=== PATIENT | male | born 1950 | race Caucasian/White ===

== ENCOUNTER 2024-10-23 13:54 | Outpatient (AMB) | payer MEDICARE, BC, SELFPAY ==
--- NOTE | 2024-10-23 13:59 | A.OFFVIS_ITS ---
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 He is a 74-year-old male with prior history of hypertension and hyperlipidemia as borderline diabetes currently on medications. Patient on EKG in June was noted to have frequent PVCs on the 12 lead and was referred here for further evaluation. He was no cardiac symptoms whatsoever. Denies any symptoms skipped heartbeats, palpitation, lightheadedness, syncope. He plays tennis 3 times a week doubles and has no exertional symptoms of chest pain or shortness of breath. 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 He has not had actually a fainting episode. He denies any orthopnea, PND, leg edema. Comes for further evaluation. Said monitors blood pressure at home in the blood pressure is very labile. Review of Systems Const Denies chills, Denies daytime sleepiness, Denies fatigue, Denies fever(s), Denies frequent falls, Denies poor appetite, Denies snoring, Denies stops breathing during sleep, Denies weakness, Denies weight gain and Denies weight loss Eyes Denies loss of vision ENT Denies dizziness and Denies hearing loss Card Denies chest pain, Denies claudication, Denies leg edema, Denies lightheadedness, Denies palpitations, Denies dyspnea, Denies dyspnea on exertion and Denies orthopnea Resp Denies cough, Denies excessive phlegm production, Denies dyspnea, Denies dyspnea on exertion, Denies snoring and Denies wheezing GI Denies abdominal pain, Denies hematochezia, Denies change in bowel habits, Denies nausea and Denies vomiting Denies dysuria and Denies urinary frequency Musc Denies arthralgias, Denies muscle weakness, Denies numbness and Denies other (frequent falls) Skin/Breast Denies nail changes and Denies rash Neuro Denies Abnormal speech present, Denies dizziness, Denies frequent falls, Denies loss of vision, Denies memory loss, Denies numbness and Denies weakness Psych Denies depression and Denies memory loss Endo Denies fatigue and Denies palpitations Michael/Lymph Reports easy bruising and Reports other (anemia) Aller/Immun Denies wheezing Physical Exam Vital Signs: Last Vital Signs Pulse 60 10/23/24 14:00 BP 130/82 10/23/24 14:00 BMI result Body Mass Index 27.5 Const General: cooperative, comfortable, no acute distress, well developed, alert, awake, Physically active and well groomed Nutritional Appearance: average body habitus Orientation/consciousness: patient oriented x3 Limitations: no limitations HEENT Head: Yes normocephalic and Yes atraumatic Neck Neck: Yes trachea midline, Yes supple and Yes no JVD Resp Effort & Inspection: normal respiratory effort Auscultation: clear to auscultation bilaterally Cardio Jugular venous distension: no JVD Palpation: normal PMI Rate: regular rate Rhythm: regular rhythm Heart sounds: S1 normal heart sound present, S2 normal heart sound present, no click, no gallops, no murmurs and no rubs GI Auscultation: normal bowel sounds Skin General skin exam: no rashes or lesions noted Neuro General: patient oriented x3 and no focal motor deficits Speech: No Abnormal speech present Extrem General: Yes no clubbing, cyanosis or edema Office Procedures EKG Details: EKG shows normal sinus rhythm with normal EKG 46625-[id number], Complete Assessment & Plan Assessment & Plan (1) PVC (premature ventricular contraction): Code(s): I49.3 - Ventricular premature depolarization Category: Medical Plan: Patient noted to have PVCs which are not very symptomatic for him. Unknown f requency of PVCs as he was no symptoms. At this point time would suggest a 7 day Holter monitor to assess for frequency and type of PVCs. If he was significantly increased burden of PVCs may require further intervention including with the ablation. Will also obtain echocardiogram to assess for cardiac structure and function to evaluate for hypertensive heart disease. Avoidance of stimulants was discussed. Can not maximize metoprolol therapy given his slow heart rate at rest. (2) Labile hypertension: Code(s): R09.89 - Other specified symptoms and signs involving the circulatory and respiratory systems Category: Medical Plan: Patient with labile hypertension with noted multiple times at home to have elevated blood pressure. However he also has symptoms of orthostatic lightheadedness while doing exertional activity. Suggested increase water intake. He said he has not been doing that. Watch in his salt intake. Will refer him for 24 hour ambulatory blood pressure monitor. Otherwise blood pressure today is well optimized continue current therapy. Can consider also renal duplex. Will follow up in the clinic in 2 months time, sooner p.r.n.. Thank you for allowing me to partake in his care Orders: Orders CA echo transthoracic complete Today I49.3 - Ventricular premature depolarization ECG 7 day holter monitor Today I49.3 - Ventricular premature depolarization Coding Level of Care Code New Pt Level 4 (34255) Complex EM visit Add On G2211 Diagnoses PVC (premature ventricular contraction) I49.3 Labile hypertension R09.89 CPT Codes EKG - CPT: 07143-[id number], Complete ([id number])
[2024-10-23 14:00] VITALS: BP 130/82; PULSE 60; BMI 27.5
--- OUTSIDE RECORDS SUMMARY | 2024-10-23 15:42 | XMS_ITS | Clinical Summary ---
Author Organization [address] Address [address] [place] [phone] Phone Care Team Providers Care Or Assistant Name Role Phone Jero Quintero MD Primary Care Provider Allergies No known active allergies Medications sodium chloride (AYR) 0.65 % nasal drops 1 [place] by Nasal route 3 times daily as needed for Congestion. 4 Active aspirin 81 mg EC tablet Take 1 tablet (81 mg total) by mouth 1 (one) time each day. Active amLODIPine (NORVASC) 5 mg tablet Take 1 tablet (5 mg total) by mouth 1 (one) time each day. 90 tablet 1 5 Active atorvastatin (LIPITOR) 40 mg tablet Take 1 tablet (40 mg total) by mouth 1 (one) time each day. 90 tablet 1 5 Active lisinopriL (PRINIVIL,ZESTR IL) 10 mg tablet Take 1 tablet (10 mg total) by mouth at bedtime. 90 tablet 1 5 Active metFORMIN XR (GLUCOPHAGE-XR) 500 mg 24 hr tablet Take 1 tablet (500 mg total) by mouth 1 (one) time each day. With breakfast 90 tablet 1 5 Active metoprolol succinate (TOPROL-XL) 25 mg 24 hr tablet Take 0.5 tablets (12.5 mg total) by mouth 1 (one) time each day. Do not crush or chew. 45 each 1 5 Active lisinopriL (PRINIVIL,ZESTR IL) 10 mg tablet Take 1 tablet (10 mg total) by mouth 1 (one) time each day. 90 tablet 1 4 10/12/19 25 Discontinu ed(Reorder ) amLODIPine (NORVASC) 5 mg tablet Take 1 tablet (5 mg total) by mouth 1 (one) time each day. 90 tablet 1 4 10/12/19 25 Discontinu ed(Reorder ) metoprolol succinate (TOPROL-XL) 25 mg 24 hr tablet Take 0.5 tablets (12.5 mg total) by mouth 1 (one) time each day. Do not crush or chew. 45 each 1 4 10/12/19 25 Discontinu ed(Reorder ) atorvastatin (LIPITOR) 40 mg tablet Take 1 tablet (40 mg total) by mouth 1 (one) time each day. 90 tablet 1 4 10/12/19 25 Discontinu ed(Reorder ) metFORMIN XR (GLUCOPHAGE-XR) 500 mg 24 hr tablet Take 1 tablet (500 mg total) by mouth 1 (one) time each day. 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 Crow and Dr. 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 Acne 09/24/2008 Essential hypertension, benign 12/17/2005 Encounters Date Type Department Care Team Description 10/11/2024 1:30 PM EDT Office Visit Adult Medicine [address] [phone] Jero Quintero MD Essential hypertension, benign (Primary Dx); Type 2 diabetes mellitus without complication, without long-term current use of insulin (CMS/HCC); Mixed hyperlipidemia; Prostate cancer (CMS/[facility]) from Last 3 Months Immunizations Name Administration Dates Next Due Influenza Quadravalent, 0.5m l (Fluad) 65yo and older 05/09/2020 Influenza Quadravalent, 0.5m l (Fluzone High-dose) 65yo and older 05/07/2023,06/25/2022 Influenza trivalent, 0.5mL ( Fluzone High-dose) 65yo and older 04/22/2021,05/26/2019,04/25/2018 Influenza trivalent, with pr eservative (Fluzone; Afluria) 6mo and older 05/09/2013 Pfizer Covid-19 Bivalent, Or iginal + Ba.1 (Non-US Trademark [employer] Bivalent) 07/15/2022 Pneumococcal conjugate 13 va lent (Prevnar 13, PCV13) 2mo and older 09/16/2015 Pneumococcal conjugate 20 va lent (Prevnar 20, PCV 20) 2mo and older 10/11/2024 Pneumococcal polysaccharide 23 valent (Pneumovax 23) 2yo and older 07/17/2014 Td Tetanus diptheria (Tdvax) 7yo and older 04/25 Tdap Tetanus diptheria acell ular pertussis (Boostrix; Adacel) 7yo and older 08/02/2007 Zoster Live 04/19/2012 Zoster recombinant (Shingrix ) 19yo and older 09/07/2021,09/02/2021,06/23/2021 Surgical History Surgery Date Site/Laterality Comments SHOULDER SURGERY Left PROCEDURE: HISTORICAL SHOULDER SURGERY; COMMENT: 70s injury during softball game BACK SURGERY PROCEDURE: HISTORICAL BACK SURGERY; COMMENT: disc removed PROSTATECTOMY 04/08/2017 PROCEDURE: PROSTATECTOMY ESOPHAGOGASTRODUODENOSCOPY 12/09/2017 PROCEDURE: [place] ESOPHAGOGASTRODUODENOSCOPY TRANSORAL DIAGNOSTIC; COMMENT: small polyp in cardia, snared without cautery: fundic gland polyp COLONOSCOPY 11/22/08 PROCEDURE: HISTORICAL COLONOSCOPY; COMMENT: diverticulosis and hemorrhoids; repeat in ten years COLONOSCOPY W/ POLYPECTOMY 12/09/2017 PROCEDURE: [place] COLSC FLX W/RMVL OF TUMOR POLYP LESION SNARE TQ; COMMENT: sessile serrated adenoma, hemorrhoids and tics; repeat in 5 yrs Medical History Medical History Date Comments Essential hypertension, benign 12/17/2005 D X:Essential hypertension, benign Acne 09/24/2008 DX:Acne 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 DX:Jeannie-We iss tear Prostate cancer ([facility]) 01/2017 DX:Pro state cancer ([facility]); COMMENT: s/p RP, deferred RT, currently on ADT followed closely by urologist every 3 months Multiple cerebral infarction s ([facility]) 04/2017 DX:Multiple cerebral infarct ions ([facility]) Type 2 diabetes mellitus wit hout complication, without long-term current use of insulin 02/08/2024 DX:Type 2 diabetes mellitus without complication, without long-term current use of insulin ([facility]) Family History Medical History Relation Name Comments No Known Problems Aunt No Known Problems Daughter Heart attack Father No Known Problems Maternal Grandfather No Known Problems Maternal Grandmother Kidney cancer Mother No Known Problems Other No Known Problems Paternal Grandfather No Known Problems Paternal Grandmother No Known Problems Sister No Known Problems Uncle Blindness Neg Hx Cataracts Neg Hx Glaucoma Neg Hx Macular degeneration Neg Hx Strabismus Neg Hx Relation Name Status Comments Aunt Daughter Alive Father at age 52. ? [place] Maternal Grandfather Maternal Grandmother Mother renal cancer Other Paternal Grandfather Paternal Grandmother Sister Alive Uncle Social History Tobacco Use Types Packs/Day Years Used Date Smoking Tobacco: Never Smokeless Tobacco: Never Alcohol Use Standard Drinks/Week Comments No 0 (1 standard drink = 0.6 oz pur e alcohol) Housing Instability Answer Date Recorde d Are you worried that in the next 2 months you may not have stable housing? No 07/16/2024 Food Access & Nutrition Answer Date Rec orded Do you have access to a vari ety of food including fruits and vegetables? Yes 07/16/2024 Access to Healthcare Answer Date Record ed Within the last 3 months, ho w many times did you visit the emergency department for your medical care? 0 07/16/2024 Health Literacy Answer Date Recorded How often do you need to hav e someone help you when you read instructions, pamphlets, or other written material from your doctor or pharmacy? Never 07/16/2024 Caregiver: How often do you need to have someone help you when you read instructions, pamphlets, or other written material from your doctor or pharmacy? Not on file 07/16/2024 Financial Risk Answer Date Recorded How hard is it for you to pa y for the very basics like food, housing, medical care, and air conditioning / heating? Not very hard 07/16/2024 Transportation Answer Date Recorded Has the lack of transportati on kept you from meetings, work, or from getting things needed for daily living? No Has the lack of transportati on kept you from medical appointments or from getting medications? No 07/16/2024 Social Isolation Answer Date Recorded How often do you feel lonely or isolated from th ose around you? Never 07/16/2024 Food Risk Answer Date Recorded Within the past 12 months we worried whether our food would run out before we got money to buy more. Never true 07/16/2024 Within the past 12 months th e food we bought just didn't last and we didn't have money to get more. Never true 07/16/2024 Dependent Care Answer Date Recorded Do you need help finding or paying for care for your loved ones. For example, early childhood education coordinator or elderly care for an older adult? No 07/16/2024 Education Answer Date Recorded Do you think completing more education or training, like finishing a GED, going to college, or learning a trade, would be helpful for you? No 07/16/2024 Employment and Income Answer Date Recor ded During the last four weeks, have you been actively looking for work? No 07/16/2024 Living Situation Answer Date Recorded What is your living situation? 1 09/16/2023 Sex and Gender Information Value Date Recorded Sex Assigned at Not on file Legal Sex Male 11:17 PM EST Gender Identity Not on file Sexual Orientation Not on file Obstetrics History Last Filed Vital Signs Vital Sign Reading Time Taken Comments Blood Pressure 122/80 10/11/2024 1:49 PM EDT Pulse 60 10/11/2024 1:15 PM EDT Temperature 36.4 ??C (97.5 ??F) 10/11/2024 1:15 PM ED T Respiratory Rate 14 10/11/2024 1:15 PM EDT Oxygen Saturation 99% 10/11/2024 1:15 PM EDT Inhaled Oxygen Concentration - - Weight 92.5 kg (204 lb) 10/11/2024 1:15 PM EDT Height 182.9 cm (6') 10/11/2024 1:15 PM EDT Body Mass Index 27.67 10/11/2024 1:15 PM EDT Plan of Treatment Health Maintenance Due Date Last Done Comments Diabetes: Annual Retina Eye Exam 1960 Colorectal Cancer Screening: Colonoscopy 07/04/2022 Medicare Annual Wellness Visit 07/04/2022 RSV Immunization Patients 60+ Years Old (1 - 1-dose 75+ series) 02/26/2024 Influenza Vaccine (#1) 2024 , 06/25/2022, 04/22/2021, Additional history exists Diabetes: Blood Sugar Control Test (HGBA1C) 01/09/2025 07/11/2024, 11/12/2023 Diabetes: Annual Urine Albumin-Creatinine Ratio (uACR) 07/11/2025 07/11/2024 Diabetes: Annual GFR (Glomerular Filtration Rate) 07/11/2025 07/11/2024, 06/01/2024, 11/12/2023 Hypertension/CHF/CAD Annual BMP Blood Test 07/11/2025 07/11/2024, 06/01/2024, 11/12/2023 Social Influencers of Health Screening 07/16/2025 07/16/2024 Diabetes: Annual Foot Exam 07/17/2025 07/17/2024 Depression Screening 10/07/2025 10/07/2024, 02/25/20 24 Falls Risk Assessment 10/11/2025 10/11/2024, 024 DTaP,Tdap,and Td Vaccines (3 - Td or Tdap) 04/25/2028 04/25/2018, 08/02/2007 Cholesterol Screening (Lipid Panel) 07/11/2029 07/11/2024, 05/17/2023 Hepatitis C Screening Completed 05/09/2013 Zoster Vaccines Completed 09/07/2021, 02/0 02/2022, 06/23/2021, Additional history exists COVID-19 Vaccine Completed 03/25/2024, , 07/15/2022, Additional history exists Pneumococcal Vaccine: 50+ Years Completed 10/11/2024, 09/16/2015, 07/17/2014 HIB Vaccines Aged Out No longer eligi ble based on patient's age to complete this topic HPV Vaccines Aged Out No longer eligi ble based on patient's age to complete this topic Hepatitis A Vaccines Aged Out No long er eligible based on patient's age to complete this topic Hepatitis B Vaccines Aged Out No long er eligible based on patient's age to complete this topic IPV Vaccines Aged Out No longer eligi ble based on patient's age to complete this topic MMR Vaccines Aged Out No longer eligi ble based on patient's age to complete this topic Meningococcal ACWY Vaccine Aged Out N o longer eligible based on patient's age to complete this topic Meningococcal B Vacine Aged Out No lo nger eligible based on patient's age to complete this topic RSV Immunization Patients Under 20 months Aged Out No longer eligible based on patient's age to complete this topic Varicella Vaccines Aged Out No longer eligible based on patient's age to complete this topic Procedures Procedure Name Priority Date/Time Associated Diagnosis Comments MICROALBUMIN CREATININE URINE RATIO Routine 07/11/2024 11:14 AM EST Malignant neoplasm of prostate (CMS/HCC) Encounter for screening for malignant neoplasm of prostate BASIC METABOLIC PANEL Routine 07/11/2024 11:14 AM EST Malignant neoplasm of prostate (CMS/HCC) Encounter for screening for malignant neoplasm of prostate HEMOGLOBIN A1C Routine 07/11/2024 11:14 AM EST Malignant neoplasm of prostate ([facility]/HCC) Encounter for screening for malignant neoplasm of prostate Elevated glucose LIPID PANEL WITH REFLEX TO DIRECT LDL Routine 07/11/2024 11:14 AM EST Malignant neoplasm of prostate ([facility]/HCC) Encounter for screening for malignant neoplasm of prostate Multiple-type hyperlipidemia DEPRESSION SCREENING Routine 2024 FALLS RISK ASSESSMENT Routine 01/11/2024 HEPATITIS C SCREENING Routine 05/09/2013 from Last 3 Months or Most Recently Relevant to Health Maintenance Results * Lipid panel with reflex to direct LDL (07/11/2024 11:14 AM EST) Cholesterol 123 0 - 200 mg/dL LAB CHEMISTRY METHOD 07/11/2024 4:00 PM [facility] Triglycerides 66 0 - 150 mg/dL LAB CHEMISTRY METHOD 07/11/2024 4:00 PM [facility] HDL 52 >=40 mg/dL LAB CHEMISTRY METHOD 07/11/2024 4:00 PM [facility] LDL Calculated 58 0 - 100 mg/dL LAB CHEMISTRY METHOD 07/11/2024 4:00 PM [facility] VLDL Cholesterol Omega 13.2 mg/dL LAB CHEMISTRY METHOD 07/11/2024 4:00 PM [facility] Non HDL Chol. (LDL+VLDL) 71 <145 mg/dL LAB CHEMISTRY METHOD 07/11/2024 4:00 PM [facility] Chol/HDL Ratio 2.4 0.0 - 4.4 LAB CHEMISTRY METHOD 07/11/2024 4:00 PM [facility] Blood Venous blood specimen / Unknown Venipuncture / Unknown 07/11/2024 11:14 AM EST 07/11/2024 11:14 AM EST us Jero Quintero MD LAB BLOOD ORDERABLES Final Result [facility] [address] [place] [address], * Microalbumin creatinine urine ratio (07/11/2024 11:14 AM EST) Creatinine, Urine 220.0 mg/dL LAB CHEMISTRY METHOD 07/11/2024 5:58 PM [facility] Microalb, Ur 22.8 0.0 - 29.0 mg/L LAB CHEMISTRY METHOD 07/11/2024 5:58 PM [facility] Microalb/Creat Ratio 10 <30 mg/g creat LAB CHEMISTRY METHOD 07/11/2024 5:[address] [facility] Urine Urine specimen obtained by clean catch procedure / Unknown Non-blood Collection / Unknown 07/11/2024 11:14 AM EST 07/11/2024 11:14 AM EST Jero Quintero MD LAB URINE ORDERABLES Final Result Performing Organization Address [facility]/[place] [facility]/ZIP Co de Phone Number [facility] [address] [place] [address], [place] [phone] * Hemoglobin A1c (07/11/2024 11:14 AM EST) Pathologist [facility] Hemoglobin A1C 5.8 <6.5 % LAB CHEMISTRY METHOD 07/11/2024 7:[address] [facility] Mean Bld Glu Estim. 120 mg/dL LAB CHEMISTRY METHOD 07/11/2024 7:00 PM [facility] Blood Venous blood specimen / Unknown Venipuncture / Unknown 07/11/2024 11:14 AM EST 07/11/2024 11:14 AM EST Jero Quintero MD LAB BLOOD ORDERABLES Final Result Performing Organization Address [facility]/ZIP Co de Phone Number [facility] [address] [place] [address], [place] [phone] * Basic metabolic panel (07/11/2024 11:14 AM EST) Sodium 139 133 - 145 mmol/L LAB CHEMISTRY METHOD 07/11/2024 3:[address] [facility] Potassium 3.8 3.5 - 5.5 mmol/L LAB CHEMISTRY METHOD 07/11/2024 3:[address] [facility] Chloride 105 96 - 110 mmol/L LAB CHEMISTRY METHOD 07/11/2024 3:[address] [facility] CO2 29 21 - 32 mmol/L LAB CHEMISTRY METHOD 07/11/2024 3:57 PM [facility] Anion Gap 5 3 - 11 LAB CHEMISTRY METHOD 07/11/2024 3:57 PM [facility] Glucose 100 70 - 100 mg/dL LAB CHEMISTRY METHOD 07/11/2024 3:57 PM [facility] BUN 17 5 - 25 mg/dL LAB CHEMISTRY METHOD 07/11/2024 3:57 PM [facility] Creatinine 1.02 0.70 - 1.30 mg/dL LAB CHEMISTRY METHOD 07/11/2024 3:57 PM [facility] eGFR 77 >=60 mL/min/1. 73m2 LAB CHEMISTRY METHOD 07/11/2024 3:57 PM [facility] Comment:Calculation based on the??Chronic Kidney Disease Epidemiology Collaboration (CKD-EPI) equation refit??without adjustment for race. BUN/Creatinine Ratio 16.7 LAB CHEMISTRY METHOD 07/11/2024 3:57 PM [facility] Calcium 9.0 8.5 - 10.5 mg/dL LAB CHEMISTRY METHOD 07/11/2024 3:57 PM [facility] Blood Venous blood specimen / Unknown Venipuncture / Unknown 07/11/2024 11:14 AM EST 07/11/2024 11:14 AM EST Jero Quintero MD LAB BLOOD ORDERABLES Final Result [facility] [address] [place] [address], * Depression Screening (2024) Depression Screening abstracted Eulogio Leon MD HEALTH MAINTENANCE Final Result * Falls Risk Assessment (01/11/2024) Falls Risk Assessment abstracted Historical Provider HEALTH MAINTENANCE Final Result * Hepatitis C Screening (05/09/2013) Hepatitis C Screening abstracted Historical Provider HEALTH MAINTENANCE Final Result from Last 3 Months or Most Recently Relevant to Health Maintenance Insurance MEDICARE [facility] Care Teams Or Assistant Relationship Specialty Start Date End Date Jero Quintero MD [address] [place] [address] PCP - General Internal Medicine 12/17/21
--- OUTSIDE RECORDS SUMMARY | 2024-10-23 15:42 | XMS_ITS | Clinical Summary ---
Author Organization [facility] Address [address] [facility] [address] [place] [phone] Phone Care Team Providers Care Steel Division Supervisor Name Role Phone Jero Quintero MD Primary Care Provider Dino Rubalcava MD Unavailable Allergies No known active allergies Medications Medication Sig Dispensed Refills Start Date End Date Status atorvastatin (LIPITOR) 40 MG tablet 03/17/2023 Active amLODIPine (NORVASC) 5 MG tablet 06/05/2023 Active lisinopril (PRINIVIL,ZESTRIL) 10 MG tablet 06/05/2023 Active metFORMIN (GLUCOPHAGE-XR) 500 MG 24 hr tablet 05/18/2023 Active aspirin 81 mg Cap Active metoprolol tartrate (LOPRESSOR) 25 MG tablet Take 25 mg by mouth daily. Taking 1/2 tablet daily Active Active Problems Problem Noted Date Diagnosed Date Renal lesion 05/10/2024 Male stress incontinence 12/17/2017 023 Posterior epistaxis 10/26/2017 04/15/2023 Acne 12/03/2016 04/15/2023 Essential hypertension 12/03/2016 3 Gastro-esophageal reflux 12/03/2016 023 Prostate cancer 12/03/2016 04/15/2023 Encounters Date Type Department Care Team Description 07/31/2024 8:00 AM EST Follow-Up [facility] Urology [address] [place] [address] Le, Maria Elena, PA-C Complex renal cyst (Primary Dx); History of prostate cancer; Renal cyst; Urinary incontinence, unspecified type from Last 3 Months Social History Tobacco Use Types Packs/Day Years Used Date Smoking Tobacco: Never Education Answer Date Recorded Are you interested in more education? Not on evelyn e 01/01/2023 Are you concerned about learning? Not on file 01/01/2023 No 01/01/2023 No 01/01/2023 Digital Access Answer Date Recorded No 01/01/2023 No 01/01/2023 Reliable internet access at home? Not on file 01/01/2023 Device with a working camera? Not on file Sex and Gender Information Value Date Recorded Sex Assigned at Male 04/18/2023 8:36 PM EDT Gender Identity Male 04/18/2023 8:36 PM EDT Sexual Orientation Bisexual 06/04/2023 11 :17 AM EST Last Filed Vital Signs Vital Sign Reading Time Taken Comments Blood Pressure 122/82 10/26/2017 1:36 PM EDT Pulse - - Temperature - - Respiratory Rate - - Oxygen Saturation - - Inhaled Oxygen Concentration - - Weight 93 kg (205 lb) 09/25/2019 10:53 AM EST Height 177.8 cm (5' 10 ) 09/25/2019 10:53 AM EST Body Mass Index 29.41 09/25/2019 10:53 AM EST Plan of Treatment Upcoming Encounters Date Type Department Care Team (Late st Contact Info) Description 01/30/2025 2:30 PM EDT Follow-Up [facility] Urology [address] [place] [address] Dino Rubalcava MD [address] [place] [address] Health Maintenance Due Date Last Done Comments Adult Td,Tdap Booster 1949 BLOOD PRESSURE 1949 POTASSIUM LEVEL 1949 DEPRESSION SCREENING 1961 HEPATITIS C SCREENING 1967 PNEUMOCOCCAL VACCINES (50+ years) (1 of 2 - PCV) 02/26/1968 COLOGUARD 1994 COLONOSCOPY 1994 COLORECTAL CANCER SCREENING 1994 FIT TEST 1994 FOBT 1994 SIGMOIDOSCOPY 1994 VIRTUAL COLONOSCOPY 1994 ZOSTER VACCINES (1 of 2) 06/14/2012 04/19/2012 INFLUENZA VACCINE (#1) 2024 RSV VACCINE (1 - 1-dose 75+ series) 02/26/2024 COVID-19 VACCINE ( - 2023-2 5 season) 2024 CREATININE LEVEL 06/01/2025 06/01/2024, 12/14/2023, 04/19/2023 LIPID PANEL 07/11/2029 07/11/2024 SMOKING STATUS SCREENING (On ce After 26 Yrs) Completed 04/19/2023 HEPATITIS A VACCINES Aged Out No long er eligible based on patient's age to complete this topic HIB VACCINES Aged Out No longer eligi ble based on patient's age to complete this topic MENINGOCOCCAL VACCINES (ACWY) Aged Out No longer eligible based on patient's age to complete this topic Medical Devices Not on file Procedures Procedure Name Priority Date/Time Associated Diagnosis Comments POCT URINE DIPSTICK Routine 08/01/2024 1 :25 PM EST Complex renal cyst from Last 3 Months Results * POCT Urine Dipstick (08/01/2024 1:25 PM EST) Glucose, Urine - POC Negative Negative Ketones, Urine - POC Negative Negative Specific [place], Urine - POC Blood, Urine - POC Negative Negative pH, Urine - POC 5.0 5.0, 6.0, 7.0, 5.5, 5.8, 6.2, 6.4, 6.6, 6.8, 7.5, 6.5 Protein, Urine - POC Negative Negative Nitrite, Urine - POC Negative Negative Leukocyte Esterase, Urine - POC Negative Negative Other 08/01/2024 1:25 PM EST Maria Elena Hernández PA-C POINT OF CARE TEST O RDERABLES from Last 3 Months Care Teams Steel Division Supervisor Relationship Specialty Start Date End Date Jero Quintero MD [address] [place] [address] PCP - General 04/09/23 Dino Rubalcava MD [address] [facility] [address] [place] [address] Urology 06/10/23 Additional Source Comments The information contained in this document represents components of the legal health record. It is not the complete legal health record.[facility]
== END 2024-10-23 14:32 | disposition home or self-care (01) ==
PROVIDERS: PCP Internal Medicine; Visit Provider Internal Medicine Cardiovascular Disease
DX: I49.3 Ventricular premature depolarization (principal); R09.89 Other specified symptoms and signs involving the circulatory and respiratory systems
CPT/HCPCS: 93010; 99204; G2211

== ENCOUNTER → 2024-10-23 13:54 | Outpatient (BNVA) | payer MEDICARE, SELFPAY | PROVIDERS: PCP Internal Medicine; Visit Provider Internal Medicine Cardiovascular Disease | DX: I49.3 Ventricular premature depolarization (principal); R09.89 Other specified symptoms and signs involving the circulatory and respiratory systems | CPT/HCPCS: 93005; 99202 ==

== ENCOUNTER 2024-10-31 14:53 | Outpatient (AMB) | payer MEDICARE, BC, SELFPAY ==
--- NOTE | 2024-10-31 15:14 | HO.NEPHOV ---
Vital Signs 10/31/24 15:16 Height 6 ft Weight 206 lb 6 oz BMI 28.0 BP 140/80 H Blood Pressure Location Lt brachial Position Sitting Pulse 61 Pulse Source Pulse Oximeter Pulse Oximetry (%) 99 Oxygen Delivery Method Room Air Intake Visit Reasons: INP: HTN/ Needs 24 Hour BPM Leather Goods Sales Representative Required: No Accompanied by: Self / Same As Patient Allergies No Known Allergies [No Known Allergies*] Allergy (Verified 10/31/24 15:16) HPI Comments Details: I had the privilege of seeing Gerhard in consultation for labile hypertension . He is a 74-year-old male with prior history of hypertension and hyperlipidemia as borderline diabetes currently on medications. He claims to be hypertensive for a long time and is on Amlodipine as well as lisinopril. He has PVC's and has been initiated on beta [place]. He was no cardiac symptoms. He plays tennis 3 times a week doubles and has no exertional symptoms of chest pain or shortness of breath. He said when he plays tennis in his running around excessively any bends over to seed cone picker a ball and get up he feels lightheaded. He has not had actually a fainting episode. He denies any orthopnea, PND, leg edema. He claims to be compliant with the medications. He does not consume excess sodium in the diet or take NSAID's. He has not gained any weight . He monitors his BP at home and continues to be labile. He thinks his renal functions are normal. He denies thyroid dysfunction or JELENA. [facility] Medical History (Updated 10/31/24 @ 20:55 by Nestor Grigsby MD) PVC (premature ventricular contraction) Labile hypertension Surgical History (Updated 10/31/24 @ 15:15 by Roxann Cole MA) H/O Spinal surgery H/O prostatectomy H/O shoulder surgery Social History (Updated 10/31/24 @ 15:16 by Roxann Cole MA) Alcohol intake: current Comment: Rare Patient Tobacco Use Status: Never used Tobacco Review of Systems Const All systems reviewed & are unremarkable except as noted in HPI and below Physical Exam Vital Signs: Last Vital Signs Pulse 61 10/31/24 15:16 BP 140/80 H 10/31/24 15:16 Pulse Ox 99 10/31/24 15:16 Oxygen Delivery Method Room Air 10/31/24 15:16 BMI result Body Mass Index 28.0 Const General: comfortable and no acute distress Orientation/consciousness: patient oriented x3 HEENT Head: Yes normocephalic Mouth: Normal oral and palatal mucosa present Eyes EOM: EOMs intact bilaterally Neck Neck: Yes supple Resp Auscultation: clear to auscultation bilaterally Cardio Jugular venous distension: no JVD Rate: regular rate GI Palpation (GI): Soft to palpation Auscultation: normal bowel sounds General: Yes no CVA tenderness Back/Spine/Pelvis Back: no CVA tenderness Skin General skin exam: no rashes or lesions noted Neuro General: patient oriented x3 and moves all extremities Extrem General: Yes no pedal edema Results Reviewed Nephrology Results: No Data to Display Assessment & Plan Assessment & Plan (1) Labile hypertension: Code(s): R09.89 - Other specified symptoms and signs involving the circulatory and respiratory systems Category: Medical Plan Gerhard has long standing hypertension and is on multiple medications. He denies proteinuria, CAD, CHF, CVA, PAD , thyroid or renal dysfunction. I have ordered 24 hour BPM. He does not take excess NSAID's or sodium in the diet. His weight is stable. He is a diabetic on Metformin. I plan to optimize his BP medications based on evolving data. Answered all questions. F/U given in 2 weeks Orders: Orders AMB 24 HR B/P Monitor PLACEMENT Today R09.89 - Other specified symptoms and signs involving the circulatory and respiratory systems Coding Level of Care Code New Pt Level 4 (09900) Diagnoses Labile hypertension R09.89
[2024-10-31 15:16] VITALS: BP 140/80; PULSE 61; O2SAT 99; BMI 28.0
--- OUTSIDE RECORDS SUMMARY | 2024-10-31 18:02 | XMS_ITS | Clinical Summary ---
Author Organization [facility] Address [address] [facility] [address] [place] [address] Phone Care Team Providers Care Stone Repairer Name Role Phone Jero Quintero MD Primary [...] reflux 12/03/2016 023 Prostate cancer 12/03/2016 04/15/2023 Social History Tobacco Use Types Packs/Day Years [...] Info) Description 01/30/2025 2:30 PM EDT Follow-Up [facility] Urology [address] [place] [address] Dino Rubalcava MD [address] [place] [address] Health Maintenance Due Date Last Done Comments [...] this topic Medical Devices Not on file Care Teams Stone Repairer Relationship Specialty Start Date End Date Jero Quintero MD [address] [place] [address] PCP - General 04/09/23 Dino Rubalcava MD [address] [place] [address] Urology 06/10/23 Additional Source Comments The information contained in this document represents components of the legal health record. It is not the complete legal health record.[facility]
--- OUTSIDE RECORDS SUMMARY | 2024-10-31 18:02 | XMS_ITS | Clinical Summary ---
Author Organization [address] Address [address] [place] [phone] Phone Care Team Providers Care Rubber Down Name Role Phone Jero Quintero MD Primary Care Provider Allergies No known active allergies Medications sodium chloride (AYR) 0.65 % nasal drops 1 [place] by Nasal route 3 times daily as [...] 1:30 PM EDT Office Visit Adult Medicine [address] [phone] Jero Quintero MD Essential hypertension, benign (Primary Dx); Type 2 diabetes mellitus without complication, without long-term current use of insulin (CMS/HCC); Mixed hyperlipidemia; Prostate cancer (CMS/[facility]) from Last 3 Months Immunizations Name Administration Dates Next Due Influenza Quadravalent, 0.5m l (Fluad) 65yo and older 05/09/2020 Influenza Quadravalent, 0.5m l (Fluzone High-dose) 65yo and older 05/07/2023,06/25/2022 Influenza trivalent, 0.5mL ( Fluzone High-dose) 65yo and older 04/22/2021,05/26/2019,04/25/2018 Influenza trivalent, with pr eservative (Fluzone; Afluria) 6mo and older 05/09/2013 Pfizer Covid-19 Bivalent, Or iginal + Ba.1 (Non-US Trademark [email or web address] Bivalent) 07/15/2022 Pneumococcal conjugate 13 va lent [...] PROSTATECTOMY 04/08/2017 PROCEDURE: PROSTATECTOMY ESOPHAGOGASTRODUODENOSCOPY 12/09/2017 PROCEDURE: HI ESOPHAGOGASTRODUODENOSCOPY TRANSORAL DIAGNOSTIC; COMMENT: small polyp in cardia, snared without cautery: fundic gland polyp COLONOSCOPY 11/22/08 PROCEDURE: HISTORICAL COLONOSCOPY; COMMENT: diverticulosis and hemorrhoids; repeat in ten years COLONOSCOPY W/ POLYPECTOMY 12/09/2017 PROCEDURE: HI COLSC FLX W/RMVL OF TUMOR POLYP LESION SNARE TQ; COMMENT: sessile serrated adenoma, hemorrhoids and tics; repeat in 5 yrs Medical History Medical History Date Comments Essential hypertension, benign 12/17/2005 D X:Essential hypertension, benign Acne 09/24/2008 DX:Acne 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 DX:Jeannie-We iss tear Prostate cancer ([facility]) 01/2017 DX:Pro state cancer ([facility]); COMMENT: s/p RP, deferred RT, currently on ADT followed closely by urologist every 3 months Multiple cerebral infarction s ([facility]) 04/2017 DX:Multiple cerebral infarct ions ([facility]) Type 2 diabetes mellitus wit hout complication, without long-term current use of insulin 02/08/2024 DX:Type 2 diabetes mellitus without complication, without long-term current use of insulin ([facility]) Family History Medical History Relation Name Comments [...] Daughter Alive Father at age 52. ? [place] Maternal Grandfather Maternal Grandmother Mother renal cancer [...] care for your loved ones. For example, child center assistant or elderly care for an older adult? [...] Medicare Annual Wellness Visit 07/04/2022 RSV Immunization Adult Patients (1 - 1-dose 75+ series) 02/26/2024 Influenza [...] age to complete this topic Meningococcal B Vaccine Aged Out No l onger eligible based on patient's age to complete [...] mg/dL LAB CHEMISTRY METHOD 07/11/2024 4:[address] [facility] Triglycerides 66 0 - 150 mg/dL LAB CHEMISTRY METHOD 07/11/2024 4:[address] [facility] HDL 52 >=40 mg/dL LAB CHEMISTRY METHOD 07/11/2024 4:[address] [facility] LDL Calculated 58 0 - 100 mg/dL LAB CHEMISTRY METHOD 07/11/2024 4:[address] [facility] VLDL Cholesterol Omega 13.2 mg/dL LAB CHEMISTRY METHOD 07/11/2024 4:[address] [facility] Non HDL Chol. (LDL+VLDL) 71 <145 mg/dL LAB CHEMISTRY METHOD 07/11/2024 4:[address] [facility] Chol/HDL Ratio 2.4 0.0 - 4.4 LAB CHEMISTRY METHOD 07/11/2024 4:[address] [facility] Blood Venous blood specimen / Unknown Venipuncture / Unknown 07/11/2024 11:14 AM EST 07/11/2024 11:14 AM EST us Jero Quintero MD LAB BLOOD ORDERABLES Final Result [facility] [address] [place] [address], * Microalbumin creatinine urine ratio (07/11/2024 11:14 AM EST) Creatinine, Urine 220.0 mg/dL LAB CHEMISTRY METHOD 07/11/2024 5:[address] [facility] Microalb, Ur 22.8 0.0 - 29.0 mg/L LAB CHEMISTRY METHOD 07/11/2024 5:[address] [facility] Microalb/Creat Ratio 10 <30 mg/g creat LAB CHEMISTRY METHOD 07/11/2024 5:58 PM EST [facility] Urine Urine specimen obtained by clean catch procedure / Unknown Non-blood Collection / Unknown 07/11/2024 11:14 AM EST 07/11/2024 11:14 AM EST Jero Quintero MD LAB URINE ORDERABLES Final Result Performing Organization Address [facility]/ZIP Co de Phone Number [facility] [address] [place] [address], [place] [phone] * Hemoglobin A1c (07/11/2024 11:14 AM EST) [facility] Hemoglobin A1C 5.8 <6.5 % LAB CHEMISTRY METHOD 07/11/2024 7:00 PM EST [facility] Mean Bld Glu Estim. 120 mg/dL LAB CHEMISTRY METHOD 07/11/2024 7:[address] [facility] Blood Venous blood specimen / Unknown Venipuncture / Unknown 07/11/2024 11:14 AM EST 07/11/2024 11:14 AM EST Jero Quintero MD LAB BLOOD ORDERABLES Final Result Performing Organization Address [facility]/ZIP Co de Phone Number [facility] [address] [place] [address], [place] [phone] * Basic metabolic panel (07/11/2024 11:14 AM EST) [facility] Sodium 139 133 - 145 mmol/L LAB CHEMISTRY METHOD 07/11/2024 3:57 PM EST [facility] Potassium 3.8 3.5 - 5.5 mmol/L LAB CHEMISTRY METHOD 07/11/2024 3:[address] [facility] Chloride 105 96 - 110 mmol/L LAB CHEMISTRY METHOD 07/11/2024 3:57 PM EST [facility] CO2 29 21 - 32 mmol/L LAB CHEMISTRY METHOD 07/11/2024 3:[address] [facility] Anion Gap 5 3 - 11 LAB CHEMISTRY METHOD 07/11/2024 3:[address] [facility] Glucose 100 70 - 100 mg/dL LAB CHEMISTRY METHOD 07/11/2024 3:[address] [facility] BUN 17 5 - 25 mg/dL LAB CHEMISTRY METHOD 07/11/2024 3:[address] [facility] Creatinine 1.02 0.70 - 1.30 mg/dL LAB CHEMISTRY METHOD 07/11/2024 3:[address] [facility] eGFR 77 >=60 mL/min/1. 73m2 LAB CHEMISTRY METHOD 07/11/2024 3:[address] [facility] Comment:Calculation based on the??Chronic Kidney Disease Epidemiology Collaboration (CKD-EPI) equation refit??without adjustment for race. BUN/Creatinine Ratio 16.7 LAB CHEMISTRY METHOD 07/11/2024 3:[address] [facility] Calcium 9.0 8.5 - 10.5 mg/dL LAB CHEMISTRY METHOD 07/11/2024 3:[address] [facility] Blood Venous blood specimen / Unknown Venipuncture / Unknown 07/11/2024 11:14 AM EST 07/11/2024 11:14 AM EST Jero Quintero MD LAB BLOOD ORDERABLES Final Result [facility] [address] [place] [address], * Depression Screening (2024) Depression Screening abstracted us Historical Provider HEALTH MAINTENANCE Final Result * Falls Risk Assessment (01/11/2024) Falls Risk Assessment abstracted Historical Provider HEALTH MAINTENANCE Final Result * Hepatitis C Screening (05/09/2013) Hepatitis C Screening abstracted Historical Provider HEALTH MAINTENANCE Final Result from Last 3 Months or Most Recently Relevant to Health Maintenance Insurance [facility]IC[facility] Care Teams Rubber Down Relationship Specialty Start Date End Date Jero Quintero MD [address] [place] [address] PCP - General Internal Medicine 12/17/21
== END 2024-10-31 15:45 | disposition home or self-care (01) ==
LOC: HO.HKAS 14:54
PROVIDERS: PCP Internal Medicine; Referring Provider Internal Medicine Cardiovascular Disease; Visit Provider Internal Medicine Nephrology
DX: R09.89 Other specified symptoms and signs involving the circulatory and respiratory systems (principal)
CPT/HCPCS: 99204

== ENCOUNTER → 2024-10-31 14:53 | Outpatient (BNVA) | payer MEDICARE, BC, SELFPAY | PROVIDERS: PCP Internal Medicine; Referring Provider Internal Medicine Cardiovascular Disease; Visit Provider Internal Medicine Nephrology | DX: R09.89 Other specified symptoms and signs involving the circulatory and respiratory systems (principal) | CPT/HCPCS: 99202 ==

== ENCOUNTER → 2024-11-02 13:08 | Outpatient (BNVA) | payer MEDICARE, BC, SELFPAY | PROVIDERS: PCP Internal Medicine; Visit Provider Internal Medicine Nephrology | DX: Z13.89 Encounter for screening for other disorder (principal) ==

== ENCOUNTER → 2024-11-03 13:35 | Outpatient (BNVA) | payer MEDICARE, BC, SELFPAY | PROVIDERS: PCP Internal Medicine; Visit Provider Internal Medicine Nephrology | DX: R09.89 Other specified symptoms and signs involving the circulatory and respiratory systems (principal) | CPT/HCPCS: 93786; 93788 ==

== ENCOUNTER 2024-11-14 09:57 | Outpatient (AMB) | payer MEDICARE, BC, SELFPAY ==
--- NOTE | 2024-11-14 10:07 | HO.NEPHOV_ITS ---
Vital Signs 11/14/24 10:10 Height 6 ft Weight 204 lb 4 oz BMI 27.7 BP 140/90 H Blood Pressure Location Lt brachial Position Sitting Pulse 65 Pulse Source Pulse Oximeter Pulse Oximetry (%) 97 Oxygen Delivery Method Room Air Intake Visit Reasons: BPM Results/ 2 weeks fu Internet Salesperson Required: No Accompanied by: Self / Same As Patient Allergies No Known Allergies [No Known Allergies*] Allergy (Verified 11/14/24 10:10) HPI Comments Details: I had the privilege of seeing Gerhard in follow up for labile hypertension . He is a 74-year-old male with prior history of hypertension and hyperlipidemia as borderline diabetes currently on medications. He claims to be hypertensive for a long time and is on Amlodipine as well as lisinopril. He has PVC's and has been initiated on beta [place]. He was no cardiac symptoms. He plays tennis 3 times a week doubles and has no exertional symptoms of chest pain or shortness of breath. He said when he plays tennis in his running around excessively any bends over to shredder picker a ball and get up he feels lightheaded. He has not had actually a fainting episode. He denies any orthopnea, PND, leg edema. He claims to be compliant with the medications. He does not consume excess sodium in the diet or take NSAID's. He has not gained any weight . He monitors his BP at home and continues to be labile. He thinks his renal functions are normal. He denies thyroid dysfunction or JELENA. He had a 24 hour BPM which showed fairly controlled BP with occasional spikes of high readings( 24 hour average 129/85 mm of Hg, Day time average 129/86, Night time average 126/81) [facility] Medical History (Updated 10/31/24 @ 20:55 by Nestor Grigsby MD) PVC (premature ventricular contraction) Labile hypertension Surgical History (Updated 10/31/24 @ 15:15 by Roxann Cole MA) H/O Spinal surgery H/O prostatectomy H/O shoulder surgery Social History (Updated 10/31/24 @ 15:16 by Roxann Cole MA) Alcohol intake: current Comment: Rare Patient Tobacco Use Status: Never used Tobacco Review of Systems Const All systems reviewed & are unremarkable except as noted in HPI and below Physical Exam Const General: comfortable and no acute distress Orientation/consciousness: patient oriented x3 HEENT Head: Yes normocephalic Mouth: Normal oral and palatal mucosa present Eyes EOM: EOMs intact bilaterally Neck Neck: Yes supple Resp Auscultation: clear to auscultation bilaterally Cardio Jugular venous distension: no JVD Rate: regular rate GI Palpation (GI): Soft to palpation Auscultation: normal bowel sounds General: Yes no CVA tenderness Back/Spine/Pelvis Back: no CVA tenderness Skin General skin exam: no rashes or lesions noted Neuro General: patient oriented x3 and moves all extremities Extrem General: Yes no pedal edema Results Reviewed Nephrology Results: No Data to Display Assessment & Plan Assessment & Plan (1) Labile hypertension: Code(s): R09.89 - Other specified symptoms and signs involving the circulatory and respiratory systems Category: Medical Plan Gerhard has long standing hypertension and is on multiple medications. He denies proteinuria, CAD, CHF, CVA, PAD , thyroid or renal dysfunction. His 24 hour BPM showed-- 24 hour average 129/85 mm of Hg, Day time average 129/86, Night time average 126/81. He does not take excess NSAID's or sodium in the diet. His weight is stable. He is a diabetic on Metformin. I held his Amlodipine and asked him to take metoprolol and lisinopril in the morning. In the event if his BP goes up after holding Amlodipine, I plan to increase dose of ACEI. Answered all questions. Coding Level of Care Code Est Pt Level 4 (35522) Diagnoses Labile hypertension R09.89
[2024-11-14 10:10] VITALS: BP 140/90; PULSE 65; O2SAT 97; BMI 27.7
--- OUTSIDE RECORDS SUMMARY | 2024-11-14 11:14 | XMS_ITS | Clinical Summary ---
Author Organization [address] Address [address] [place] [phone] Phone Care Team Providers Care Automotive Service Porter Name Role Phone Jeor Quintero MD Primary Care Provider Allergies No known active allergies Medications sodium chloride (AYR) 0.65 % nasal drops 1 [place] by Nasal route 3 times daily as [...] not crush or chew. 45 each 1 Active Active Problems Problem Noted Date Diagnosed Date Type 2 diabetes mellitus wit hout complication, without long-term current use of insulin ([facility] V24, [facility] V28) 02/08/2024 Epistaxis 02/08/2024 Prediabetes 09/29/2022 Mixed hyperlipidemia 04/25/2019 Multiple cerebral infarctions ([facility] V24, [facility] V28) 11/17/2017 Iron deficiency anemia 11/17/2017 Prostate cancer ([facility] V24, [facility] V28) 11/30 Overview (06/09/2024): High grade prostate cancer - seeing Dr. Crow and Dr. 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 Acne 09/24/2008 Essential hypertension, benign 12/17/2005 Encounters Date Type Department Care Team Description 10/11/2024 1:30 PM EDT Office Visit Adult Medicine [address] [phone] Jero Quintero MD Essential hypertension, benign (Primary Dx); Type 2 diabetes mellitus without complication, without long-term current use of insulin ([facility] V24, [facility] V28); Mixed hyperlipidemia; Prostate cancer ([facility] V24, [facility] V28) from Last 3 Months Immunizations Name Administration Dates Next Due Influenza Quadravalent, 0.5m l (Fluad) 65yo and older 05/09/2020 Influenza Quadravalent, 0.5m l (Fluzone High-dose) 65yo and older 05/07/2023,06/25/2022 Influenza trivalent, 0.5mL ( Fluzone High-dose) 65yo and older 04/22/2021,05/26/2019,04/25/2018 Influenza trivalent, with pr eservative (Fluzone; Afluria) 6mo and older 05/09/2013 Pfizer Covid-19 Bivalent, Or iginal + Ba.1 (Non-US Trademark COMIRNATY Bivalent) 07/15/2022 Pneumococcal conjugate 13 va lent [...] PROSTATECTOMY 04/08/2017 PROCEDURE: PROSTATECTOMY ESOPHAGOGASTRODUODENOSCOPY 12/09/2017 PROCEDURE: AK ESOPHAGOGASTRODUODENOSCOPY TRANSORAL DIAGNOSTIC; COMMENT: small polyp in cardia, snared without cautery: fundic gland polyp COLONOSCOPY 11/22/08 PROCEDURE: HISTORICAL COLONOSCOPY; COMMENT: diverticulosis and hemorrhoids; repeat in ten years COLONOSCOPY W/ POLYPECTOMY 12/09/2017 PROCEDURE: AK COLSC FLX W/RMVL OF TUMOR POLYP LESION SNARE TQ; COMMENT: sessile serrated adenoma, hemorrhoids and tics; repeat in 5 yrs Medical History Medical History Date Comments Essential hypertension, benign 12/17/2005 D X:Essential hypertension, benign Acne 09/24/2008 DX:Acne 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 DX:Jeannie-We iss tear Prostate cancer ([facility] V24 , [facility] V28) 01/2017 DX:Prostate cancer (HCC); CO MMENT: s/p RP, deferred RT, currently on ADT followed closely by urologist every 3 months Multiple cerebral infarction s ([facility] V24, [facility] V28) 04/2017 DX:Multiple cerebral infarct ions (HCC) Type 2 diabetes mellitus wit hout complication, without long-term current use of insulin ([facility] V24, [facility] V28) 02/08/2024 DX:Type 2 diabetes mellitus without complication, without long-term current use of insulin (HCC) Family History Medical History Relation Name Comments [...] Daughter Alive Father at age 52. ? [place] Maternal Grandfather Maternal Grandmother Mother renal cancer [...] ed Within the last 3 months, ho sharif many times did you visit the emergency [...] care for your loved ones. For example, maternal child nurse or elderly care for an older adult? [...] Patients (1 - 1-dose 75+ series) 02/26/2024 COVID-19 Vaccine (7 - Pfizer risk season) 2024 03/25/2024, 05/07/2023, 07/15/2022, Additional history exists Diabetes: Blood Sugar Control Test (HGBA1C) 01/09/2025 07/11/2024, 11/12/2023 Influenza Vaccine (Season Ended) 2025 05/07/2023, 06/25/2022, 04/22/2021, Additional history exists Diabetes: Annual Urine Albumin-Creatinine Ratio (uACR) 07/11/2025 [...] Screening Completed 05/09/2013 Zoster Vaccines Completed 09/07/2021, 02/2022, 06/23/2021, Additional history exists Pneumococcal Vaccine: 50+ Years [...] 11:14 AM EST Malignant neoplasm of prostate ([facility] V24, [facility] V28) Encounter for screening for malignant neoplasm of prostate BASIC METABOLIC PANEL Routine 07/11/2024 11:14 AM EST Malignant neoplasm of prostate ([facility] V24, [facility] V28) Encounter for screening for malignant neoplasm of prostate HEMOGLOBIN A1C Routine 07/11/2024 11:14 AM EST Malignant neoplasm of prostate ([facility] V24, [facility] V28) Encounter for screening for malignant neoplasm of prostate Elevated glucose LIPID PANEL WITH REFLEX TO DIRECT LDL Routine 07/11/2024 11:14 AM EST Malignant neoplasm of prostate ([facility] V24, [facility] V28) Encounter for screening for malignant neoplasm of prostate Multiple-type hyperlipidemia DEPRESSION SCREENING Routine 2024 FALLS RISK ASSESSMENT Routine 01/11/2024 HEPATITIS C SCREENING Routine 05/09/2013 from Last 3 Months or Most Recently Relevant to Health Maintenance Results * Lipid panel with reflex to direct LDL (07/11/2024 11:14 AM EST) Cholesterol 123 0 - 200 mg/dL LAB CHEMISTRY METHOD 07/11/2024 4:00 PM EST [facility] Triglycerides 66 0 - 150 mg/dL LAB CHEMISTRY METHOD 07/11/2024 4:00 PM EST [facility] HDL 52 >=40 mg/dL LAB CHEMISTRY METHOD 07/11/2024 4:00 PM EST [facility] LDL Calculated 58 0 - 100 mg/dL LAB CHEMISTRY METHOD 07/11/2024 4:00 PM [facility] VLDL Cholesterol Omega 13.2 mg/dL LAB CHEMISTRY METHOD 07/11/2024 4:00 PM [facility] Non HDL Chol. (LDL+VLDL) 71 <145 mg/dL LAB CHEMISTRY METHOD 07/11/2024 4:00 PM [facility] Chol/HDL Ratio 2.4 0.0 - 4.4 LAB CHEMISTRY METHOD 07/11/2024 4:00 PM [facility] Blood Venous blood specimen / Unknown Venipuncture / Unknown 07/11/2024 11:14 AM EST 07/11/2024 11:14 AM EST Jero Quintero MD LAB BLOOD ORDERABLES Final Result Performing Organization Address City/[facility]/ZIP Co de Phone Number [facility] [address] [place] [address], [place] [phone] * Microalbumin creatinine urine ratio (07/11/2024 11:14 AM EST) Creatinine, Urine 220.0 mg/dL LAB CHEMISTRY METHOD 07/11/2024 5:58 PM [facility] Microalb, Ur 22.8 0.0 - 29.0 mg/L LAB CHEMISTRY METHOD 07/11/2024 5:58 PM [facility] Microalb/Creat Ratio 10 <30 mg/g creat LAB CHEMISTRY METHOD 07/11/2024 5:58 PM [facility] Urine Urine specimen obtained by clean catch procedure / Unknown Non-blood Collection / Unknown 07/11/2024 11:14 AM EST 07/11/2024 11:14 AM EST us Jero Quintero MD LAB URINE ORDERABLES Final Result Performing Organization Address City/[facility]/ZIP Co de Phone Number [facility] [address] [place] [address], [place] [phone] * Hemoglobin A1c (07/11/2024 11:14 AM EST) Pathologist [facility] Hemoglobin A1C 5.8 <6.5 % LAB CHEMISTRY METHOD 07/11/2024 7:00 PM [facility] Mean Bld Glu Estim. 120 mg/dL LAB CHEMISTRY METHOD 07/11/2024 7:00 PM [facility] Blood Venous blood specimen / Unknown Venipuncture / Unknown 07/11/2024 11:14 AM EST 07/11/2024 11:14 AM EST Jero Quintero MD LAB BLOOD ORDERABLES Final Result [facility] [address] [place] [address], * Basic metabolic panel (07/11/2024 11:14 AM EST) [facility] Sodium 139 133 - 145 mmol/L LAB CHEMISTRY METHOD 07/11/2024 3:57 PM [facility] Potassium 3.8 3.5 - 5.5 mmol/L LAB CHEMISTRY METHOD 07/11/2024 3:57 PM [facility] Chloride 105 96 - 110 mmol/L LAB CHEMISTRY METHOD 07/11/2024 3:57 PM [facility] CO2 29 21 - 32 mmol/L LAB CHEMISTRY METHOD 07/11/2024 3:57 PM [facility] Anion Gap 5 3 - 11 LAB CHEMISTRY METHOD 07/11/2024 3:57 PM [facility] Glucose 100 70 - 100 mg/dL LAB CHEMISTRY METHOD 07/11/2024 3:57 PM [facility] BUN 17 5 - 25 mg/dL LAB CHEMISTRY METHOD 07/11/2024 3:57 PM [facility] Creatinine 1.02 0.70 - 1.30 mg/dL LAB CHEMISTRY METHOD 07/11/2024 3:57 PM EST [facility] eGFR 77 >=60 mL/min/1. 73m2 LAB CHEMISTRY METHOD 07/11/2024 3:57 PM EST [facility] Comment:Calculation based on the??Chronic Kidney Disease Epidemiology Collaboration (CKD-EPI) equation refit??without adjustment for race. BUN/Creatinine Ratio 16.7 LAB CHEMISTRY METHOD 07/11/2024 3:57 PM [facility] Calcium 9.0 8.5 - 10.5 mg/dL LAB CHEMISTRY METHOD 07/11/2024 3:57 PM [facility] Blood Venous blood specimen / Unknown Venipuncture / Unknown 07/11/2024 11:14 AM EST 07/11/2024 11:14 AM EST Jero Quintero MD LAB BLOOD ORDERABLES Final Result [facility] [address] [place] [address], * Depression Screening (2024) Pathologist [facility] Depression Screening abstracted Historical Provider HEALTH MAINTENANCE Final Result * Falls Risk Assessment (01/11/2024) Pathologist [facility] Falls Risk Assessment abstracted Historical Provider HEALTH MAINTENANCE Final Result * Hepatitis C Screening (05/09/2013) Pathologist [facility] Hepatitis C Screening abstracted Historical Provider HEALTH MAINTENANCE Final Result from Last 3 Months or Most Recently Relevant to Health Maintenance Insurance MEDICARE [employer] Care Teams Automotive Service Porter Relationship Specialty Start Date End Date Jero Quintero MD [address] [place] [address] PCP - General Internal Medicine 12/17/21
--- OUTSIDE RECORDS SUMMARY | 2024-11-14 11:14 | XMS_ITS | Clinical Summary ---
Author Organization [facility] Address [address] [facility] [address] [place] [phone] Phone Care Team Providers Care Qa Developer Name Role Phone Jero Quintero MD Primary [...] Info) Description 01/30/2025 2:30 PM EDT Follow-Up [facility] [address] [place] [address] Dino Rubalcava MD [address] [place] [address] Health Maintenance Due Date Last Done Comments [...] Medical Devices Not on file Care Teams Qa Developer Relationship Specialty Start Date End Date Jero Quintero MD [address] [place] [address] PCP - General 04/09/23 Dino Rubalcava MD [address] [place] [address] Urology 06/10/23 Additional Source Comments The information contained in this document represents components of the legal health record. It is not the complete legal health record.[facility]
== END 2024-11-14 10:28 | disposition home or self-care (01) ==
LOC: HO.HKAS 09:57
PROVIDERS: PCP Internal Medicine; Visit Provider Internal Medicine Nephrology
DX: R09.89 Other specified symptoms and signs involving the circulatory and respiratory systems (principal)
CPT/HCPCS: 99214

== ENCOUNTER → 2024-11-14 09:57 | Outpatient (BNVA) | payer MEDICARE, BC, SELFPAY | PROVIDERS: PCP Internal Medicine; Visit Provider Internal Medicine Nephrology | DX: I10 Essential (primary) hypertension (principal); E78.5 Hyperlipidemia, unspecified; R09.89 Other specified symptoms and signs involving the circulatory and respiratory systems; Z79.899 Other long term (current) drug therapy | CPT/HCPCS: 99212 ==

== ENCOUNTER → 2024-11-17 09:46 | Outpatient (REF) | payer MEDICARE, BC, SELFPAY ==
--- NOTE | 2024-11-17 09:49 | CA_ITS ---
Transthoracic Echocardiogram Patient (Last, First, Middle): Gerhard Ko, Gender: Male Date of : 1950 Age: 74 Procedure Date: 11/17/2024 Procedure Type: Transthoracic Echocardiogram Location: OP Height: 182.88 cm Weight: 92.53 kg BSA: 2.15 m2 Heart Rate: bpm BP: 156 / 88 mmHg Inventory Transcriber: TO Referring MD: Sharad Ferrer MD Symptoms: I49.3 - Ventricular premature depolarization Study Quality: Adequate ECG Rhythm: Sinus Conclusions: - The left ventricular systolic function is normal. The calculated ejection fraction is 59% by biplane method. - No obvious valvular pathology seen on this study. - There is mild dilatation of the ascending aorta measuring 4.10 cm. Findings Left Ventricle Normal left ventricular cavity size. The left ventricular systolic function is normal. The calculated ejection fraction is 59% by biplane method. There is no evidence of regional wall motion abnormalities. Evidence suggests grade I (mild) diastolic dysfunction. There is mild septal and mild basal asymmetric hypertrophy. Right Ventricle Mildly increased right ventricular cavity size. There is normal right ventricular systolic function. Atria The left atrium is mildly dilated. The right atrium is normal in size. Aortic Valve There is a normal trileaflet aortic valve. There is mild calcification of the aortic valve. There is no aortic valve stenosis. There is trace (trivial) aortic valve regurgitation. Mitral Valve The mitral valve appears normal. There is trace mitral valve regurgitation. There is no mitral valve stenosis. Pulmonic Valve There is trace pulmonic valve regurgitation. Tricuspid Valve There is mild tricuspid valve regurgitation. There is no evidence of pulmonary hypertension. Great Vessels There is mild dilatation of the ascending aorta measuring 4.10 cm. Venous The inferior vena cava is normal in size and collapses greater than 50% with inspiration. Pericardium/Pleural There is no evidence of pericardial effusion. Prior Study Comparison No prior study available for comparison. Recommendations, Care & Conclusions No obvious valvular pathology seen on this study. Measurements 2D Linear Measurements IVSd: 1.28 0.6-0.9/0.6-1.0 cm LVIDd: 4.45 3.9-5.3/4.2-5.9 cm LVIDd Index: 2.07 2.4-3.2/2.2-3.1 cm/m2 LVIDs: 2.74 2.0-3.6 cm LVPWd: 0.94 0.7-1.1 cm LA Diam: 3.10 2.7-3.8/3.0-4.0 cm LAIDs Index: 1.44 1.5-2.3 cm/m2 LV Mass: 216.27 67-162/88-224 g LV Mass Index: 100.59 43-95/49-115 g/m2 LVOT Diam: 2.30 3.0+(-)1.3 cm 2D Systolic Function EF 4C: 57.10 >55% EF 2C: 60.20 >55% EF BiP: 59.20 >55% Mitral Valve MV Pk E: 0.47 MV PK A: 0.64 MV Decel Time: 293.00 E/A: 0.70 E'Lateral: 4.24 E'Medial: 3.37 E/E' Med: 14.00 E/E' Lat: 11.10 PHT: 86.00 MVA PHT: 2.56 Decel [place]: 1.61 Aortic Valve AoV Pk [place]: 1.37 AoV Mn [place]: 0.96 AoV VTI: 0.37 AoV Pk Grad: 8.00 Aov Mn Grad: 4.00 ANISH Cont.VTI: 3.03 LVOT LVOT Pk [place]: 1.14 LVOT Mn [place]: 0.75 LVOT VTI: 0.27 LVOT Pk Grad: 5.00 LVOT Mn Grad: 3.00 LVOT Diam: 2.30 LVOT Area: 4.15 Diastolic Function MV Pk E: 0.47 MV Pk A: 0.64 E/A: 0.70 E'Medial: 3.37 E/E' Med: 14.00 E' Laterial: 4.24 E/E' Lat: 11.10 Right Ventricle TAPSE (mm): 30.00 TVS' [place]: 16.00 Tricuspid Valve TR Pk [place]: 2.41 TR Pk Grad: 23.00 RA Press: 3.00 RVSP: 26.00 Great Vessels Aorta Ao Asc: 4.10 2.1-3.4 cm Updated in Other Vendor System with Status of Final Salas Olivares MD electronically signed on 11/18/2024 1:34:35 PM with status of Final
--- OUTSIDE RECORDS SUMMARY | 2024-11-17 10:04 | XMS_ITS | Clinical Summary ---
Author Organization [facility] Address [address] [facility] [address] [place] [phone] Phone Care Team Providers Care Adzing And Boring Machine Operator Name Role Phone Jero Quintero MD Primary [...] Info) Description 01/30/2025 2:30 PM EDT Follow-Up [facility]rology [address] [place] [address] Dino Rubalcava MD [address] [place] [address] Health Maintenance Due Date Last Done Comments [...] Medical Devices Not on file Care Teams Adzing And Boring Machine Operator Relationship Specialty Start Date End Date Jero Quintero MD [address] [place] [address] PCP - General 04/09/23 Dino Rubalcava MD [address] [place] [address] Urology 06/10/23 Additional Source Comments The information contained in this document represents components of the legal health record. It is not the complete legal health record.[facility]
--- OUTSIDE RECORDS SUMMARY | 2024-11-17 10:04 | XMS_ITS | Clinical Summary ---
Author Organization [address] Address [address] [place] [phone] Phone Care Team Providers Care Engineering Aide Name Role Phone Jero Quintero MD Primary Care Provider Allergies No known active allergies Medications sodium chloride (AYR) 0.65 % nasal drops 1 [place] by Nasal route 3 times daily as [...] complication, without long-term current use of insulin ([facility] V24, [facility] V28) 02/08/2024 Epistaxis 02/08/2024 Prediabetes 09/29/2022 Mixed hyperlipidemia 04/25/2019 Multiple cerebral infarctions ([facility] V24, [facility] V28) 11/17/2017 Iron deficiency anemia 11/17/2017 Prostate cancer ([facility] V24, [facility] V28) 11/30 Overview (06/09/2024): High grade prostate cancer - seeing Dr. Crow and Dr. 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 Acne 09/24/2008 Essential hypertension, benign 12/17/2005 Encounters Date Type Department Care Team Description 10/11/2024 1:30 PM EDT Office Visit Adult Medicine [address] [phone] Jero Quintero MD Essential hypertension, benign (Primary Dx); Type 2 diabetes mellitus without complication, without long-term current use of insulin ([facility] V24, [facility] V28); Mixed hyperlipidemia; Prostate cancer ([facility] V24, [facility] V28) from Last 3 Months Immunizations Name [...] PROSTATECTOMY 04/08/2017 PROCEDURE: PROSTATECTOMY ESOPHAGOGASTRODUODENOSCOPY 12/09/2017 PROCEDURE: MD ESOPHAGOGASTRODUODENOSCOPY TRANSORAL DIAGNOSTIC; COMMENT: small polyp in cardia, snared without cautery: fundic gland polyp COLONOSCOPY 11/22/08 PROCEDURE: HISTORICAL COLONOSCOPY; COMMENT: diverticulosis and hemorrhoids; repeat in ten years COLONOSCOPY W/ POLYPECTOMY 12/09/2017 PROCEDURE: MD COLSC FLX W/RMVL OF TUMOR POLYP LESION SNARE TQ; COMMENT: sessile serrated adenoma, hemorrhoids and tics; repeat in 5 yrs Medical History Medical History Date Comments Essential hypertension, benign 12/17/2005 D X:Essential hypertension, benign Acne 09/24/2008 DX:Acne 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 DX:Jeannie-We iss tear Prostate cancer ([facility] V24 , [facility] V28) 01/2017 DX:Prostate cancer (HCC); CO MMENT: s/p RP, deferred RT, currently on ADT followed closely by urologist every 3 months Multiple cerebral infarction s ([facility] V24, [facility] V28) 04/2017 DX:Multiple cerebral infarct ions (HCC) Type 2 diabetes mellitus wit hout complication, without long-term current use of insulin ([facility] V24, [facility] V28) 02/08/2024 DX:Type 2 diabetes mellitus without [...] Daughter Alive Father at age 52. ? [place] Maternal Grandfather Maternal Grandmother Mother renal cancer [...] for your loved ones. For example, child care sitter or elderly care for an older adult? [...] 11:14 AM EST Malignant neoplasm of prostate ([facility] V24, [facility] V28) Encounter for screening for malignant neoplasm of prostate BASIC METABOLIC PANEL Routine 07/11/2024 11:14 AM EST Malignant neoplasm of prostate ([facility] V24, [facility] V28) Encounter for screening for malignant neoplasm of prostate HEMOGLOBIN A1C Routine 07/11/2024 11:14 AM EST Malignant neoplasm of prostate ([facility] V24, [facility] V28) Encounter for screening for malignant neoplasm of prostate Elevated glucose LIPID PANEL WITH REFLEX TO DIRECT LDL Routine 07/11/2024 11:14 AM EST Malignant neoplasm of prostate ([facility] V24, [facility] V28) Encounter for screening for malignant neoplasm of prostate Multiple-type hyperlipidemia DEPRESSION SCREENING Routine 2024 FALLS RISK ASSESSMENT Routine 01/11/2024 HEPATITIS C SCREENING Routine 05/09/2013 from Last 3 Months or Most Recently Relevant to Health Maintenance Results * Lipid panel with reflex to direct LDL (07/11/2024 11:14 AM EST) Cholesterol 123 0 - 200 mg/dL LAB CHEMISTRY METHOD 07/11/2024 4:00 PM EST [facility] Triglycerides 66 0 - 150 mg/dL LAB CHEMISTRY METHOD 07/11/2024 4:00 PM EST [facility] HDL 52 >=40 mg/dL LAB CHEMISTRY METHOD 07/11/2024 4:00 PM EST [facility] LDL Calculated 58 0 [...] BLOOD ORDERABLES Final Result Performing Organization Address City/[facility]/ZIP Co de Phone Number [facility] [address] [place] [address], [place] [phone] * Microalbumin creatinine urine ratio (07/11/2024 11:14 AM EST) Creatinine, Urine 220.0 mg/dL LAB CHEMISTRY METHOD 07/11/2024 5:[address] [facility] Microalb, Ur 22.8 0.0 - 29.0 mg/L LAB CHEMISTRY METHOD 07/11/2024 5:[address] [facility] Microalb/Creat Ratio 10 <30 mg/g creat LAB CHEMISTRY METHOD 07/11/2024 5:[address] [facility] Urine Urine specimen obtained by clean catch procedure / Unknown Non-blood Collection / Unknown 07/11/2024 11:14 AM EST 07/11/2024 11:14 AM EST us Jero Quintero MD LAB URINE ORDERABLES Final Result Performing Organization Address City/[facility]/ZIP Co de Phone Number [facility] [address] [place] [address], [place] [phone] * Hemoglobin A1c (07/11/2024 11:14 AM EST) Pathologist [facility] Hemoglobin A1C 5.8 <6.5 % LAB CHEMISTRY METHOD 07/11/2024 7:[address] [facility] Mean Bld Glu Estim. 120 mg/dL LAB CHEMISTRY METHOD 07/11/2024 7:[address] [facility] Blood Venous blood specimen / Unknown Venipuncture / Unknown 07/11/2024 11:14 AM EST 07/11/2024 11:14 AM EST Jero Quintero MD LAB BLOOD ORDERABLES Final Result [facility] [address] [place] [address], * Basic metabolic panel (07/11/2024 11:14 AM EST) [facility] Sodium 139 133 - 145 mmol/L LAB CHEMISTRY METHOD 07/11/2024 3:[address] [facility] Potassium 3.8 3.5 - 5.5 mmol/L LAB CHEMISTRY METHOD 07/11/2024 3:[address] [facility] Chloride 105 96 - 110 mmol/L LAB CHEMISTRY METHOD 07/11/2024 3:[address] [facility] CO2 29 21 - 32 [...] LAB CHEMISTRY METHOD 07/11/2024 3:57 PM EST [facility] eGFR 77 >=60 mL/min/1. 73m2 LAB CHEMISTRY METHOD 07/11/2024 3:57 PM EST [facility] Comment:Calculation based on the??Chronic [...] Quintero MD LAB BLOOD ORDERABLES Final Result [facility] [address] [place] [address], * Depression Screening (2024) Pathologist [facility] Depression Screening abstracted Historical Provider HEALTH MAINTENANCE Final Result * Falls Risk Assessment (01/11/2024) Pathologist [facility] Falls Risk Assessment abstracted Historical Provider HEALTH MAINTENANCE Final Result * Hepatitis C Screening (05/09/2013) Pathologist [facility] Hepatitis C Screening abstracted Historical Provider HEALTH MAINTENANCE Final Result from Last 3 Months or Most Recently Relevant to Health Maintenance Insurance MEDICARE [facility] Care Teams Engineering Aide Relationship Specialty Start Date End Date Jero Quintero MD [address] [place] [address] PCP - General Internal Medicine 12/17/21
== END ==
LOC: HO.CARD 09:46
PROVIDERS: PCP Internal Medicine; Visit Provider Internal Medicine Cardiovascular Disease
DX: I49.3 Ventricular premature depolarization (principal)
CPT/HCPCS: 93242; 93306

== ENCOUNTER → 2024-11-17 09:49 | Outpatient (BNV) | payer MEDICARE, BC, SELFPAY | PROVIDERS: PCP Internal Medicine; Visit Provider Internal Medicine | DX: I35.0 Nonrheumatic aortic (valve) stenosis (principal); I34.0 Nonrheumatic mitral (valve) insufficiency | CPT/HCPCS: 93306 ==

== ENCOUNTER 2024-12-08 09:16 | Outpatient (REF) | payer MEDICARE, BC, SELFPAY ==
--- NOTE | ~2024-12-08 | US_ITS ---
CLINICAL HISTORY: R09.89 - Other specified symptoms and signs involving the circulatory an... US Renal with Doppler Comparison: None Findings: Right kidney normal size and echotexture, 11.7 cm length. No hydronephrosis. Normal color Doppler. Resistive index 0.55-0.64. Maximum renal artery velocity 74 cm/sec. Normal renal to aortic ratio. Left kidney normal size and echotexture, 11.0 cm length. No hydronephrosis. Normal color Doppler. Resistive index 0.62-0.72. Maximum renal artery velocity 129 cm/sec. Normal renal to aortic ratio. Simple appearing lower pole cyst on the right measuring up to 12 mm. Simple appearing left renal cysts measuring up to 3.3 cm. IMPRESSION: 1. No evidence for renal artery stenosis. This document has been electronically signed by: Desiree Anderson MD on 12/09/2024 08:03:08
--- OUTSIDE RECORDS SUMMARY | 2024-12-08 09:29 | XMS_ITS | Clinical Summary ---
Author Organization [facility] Address [address] [place] [phone] Phone Care Team Providers Care Nuclear Supervising Operator Name Role Phone Jero Quintero MD Primary Care Provider Dino Rubalcava MD Unavailable Allergies No known active allergies Medications atorvastatin (LIPITOR) 40 MG tablet 03/17/2023 Active amLODIPine (NORVASC) 5 MG tablet 06/05/2023 Active lisinopril (PRINIVIL,ZESTRI L) 10 MG tablet 06/05/2023 Act pretty metFORMIN (GLUCOPHAGE-XR) 500 MG 24 hr tablet [...] Assigned at Male 04/18/2023 8:36 PM EDT Legal Sex Male 8:12 PM EDT Gender Identity Male 04/18/2023 8:36 [...] Info) Description 01/30/2025 2:30 PM EDT Follow-Up [facility] [address] [place] [address] Dino Rubalcava MD [address] [place] [address] Health Maintenance Due Date Last Done Comments Adult Td,Tdap Booster 1949 BLOOD PRESSURE 1949 POTASSIUM LEVEL 1949 DEPRESSION SCREENING 1961 HEPATITIS C SCREENING 1967 PNEUMOCOCCAL VACCINES (50+ years) (1 of 2 - PCV) 02/26/1968 COLOGUARD 1994 COLONOSCOPY 1994 COLORECTAL CANCER SCREENING 1994 FIT TEST 1994 FOBT 1994 SIGMOIDOSCOPY 1994 VIRTUAL COLONOSCOPY 1994 ZOSTER VACCINES (1 of 2) 06/14/2012 04/19/2012 RSV VACCINE (1 - 1-dose 75+ series) [...] age to complete this topic MENINGOCOCCAL VACCINES (B) Aged Out N o longer eligible based on patient's age to complete this topic Medical Devices Not on file Insurance MEDICARE PART A & B [facility] MEDEX SUPPLEMENT MEDICARE PART A & B [employer] MEDEX SUPPLEMENT MEDICARE PART A & B [employer] MEDEX SUPPLEMENT Member Subscriber Plan / Payer ( fective 2014-Present) Name:Gerhard Ko Relation to Subscriber:Self Name:Gerhard Ko Payer ID:[id number] (NAIC) Type:Indemnity Address: [place] [id number] MEDICARE PART A & B [employer] SUPPLEMENT MEDICARE PART A & B [employer] MEDEX SUPPLEMENT MEDICARE PART A & B [facility] MEDEX SUPPLEMENT MEDICARE PART A & B [employer] MEDEX SUPPLEMENT Care Teams Nuclear Supervising Operator Relationship Specialty Start Date End Date Jero Quintero MD [address] [place] [address] PCP - General 04/09/23 Dino Rubalcava MD [address] [facility] [address] [place] [address] Urology 06/10/23 Additional Source Comments The information contained in this document represents components of the legal health record. It is not the complete legal health record.[facility]
--- OUTSIDE RECORDS SUMMARY | 2024-12-08 09:30 | XMS_ITS | Clinical Summary ---
Author Organization [address] Address [address] [place] [phone] Phone Care Team Providers Care Field Sales Trainer Name Role Phone Jero Quintero MD Primary Care Provider [phone] Allergies No known active allergies Medications sodium chloride (AYR) 0.65 % nasal drops 1 [place] by Nasal route 3 times daily as [...] complication, without long-term current use of insulin ([facility], [facility] V28) 02/08/2024 Epistaxis 02/08/2024 Prediabetes 09/29/2022 Mixed hyperlipidemia 04/25/2019 Multiple cerebral infarctions ([facility] V24, [facility] V28) 11/17/2017 Iron deficiency anemia 11/17/2017 Prostate cancer ([facility] V24, [facility] V28) 11/30 Overview (06/09/2024): High grade prostate cancer - seeing Dr. Crow and Dr. 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 Acne 09/24/2008 Essential hypertension, benign 12/17/2005 Encounters Date Type Department Care Team Description 10/11/2024 1:30 PM EDT Office Visit Adult Medicine [address] [phone] Jero Quintero MD Essential hypertension, benign (Primary Dx); Type 2 diabetes mellitus without complication, without long-term current use of insulin ([facility] V24, [facility] V28); Mixed hyperlipidemia; Prostate cancer ([facility] V24, [facility] V28) from Last 3 Months Immunizations Name [...] PROSTATECTOMY 04/08/2017 PROCEDURE: PROSTATECTOMY ESOPHAGOGASTRODUODENOSCOPY 12/09/2017 PROCEDURE: [place] ESOPHAGOGASTRODUODENOSCOPY TRANSORAL DIAGNOSTIC; COMMENT: small polyp in cardia, snared without cautery: fundic gland polyp COLONOSCOPY 11/22/08 PROCEDURE: HISTORICAL COLONOSCOPY; COMMENT: diverticulosis and hemorrhoids; repeat in ten years COLONOSCOPY W/ POLYPECTOMY 12/09/2017 PROCEDURE: [place] COLSC FLX W/RMVL OF TUMOR POLYP LESION SNARE TQ; COMMENT: sessile serrated adenoma, hemorrhoids and tics; repeat in 5 yrs Medical History Medical History Date Comments Essential hypertension, benign 12/17/2005 D X:Essential hypertension, benign Acne 09/24/2008 DX:Acne 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 DX:Jeannie-We iss tear Prostate cancer ([facility] V24 , [facility] V28) 01/2017 DX:Prostate cancer (HCC); CO MMENT: s/p RP, deferred RT, currently on ADT followed closely by urologist every 3 months Multiple cerebral infarction s ([facility] V24, [facility] V28) 04/2017 DX:Multiple cerebral infarct ions (HCC) Type 2 diabetes mellitus wit hout complication, without long-term current use of insulin ([facility] V24, [facility] V28) 02/08/2024 DX:Type 2 diabetes mellitus without [...] Daughter Alive Father at age 52. ? [place] Maternal Grandfather Maternal Grandmother Mother renal cancer [...] your loved ones. For example, child care coordinator or elderly care for an older [...] - 1-dose 75+ series) 02/26/2024 COVID-19 Vaccine (6 - Pfizer risk season) 2024 03/25/2024, 05/07/2023, 05/20/2021, Additional history exists Influenza Vaccine (Season Ended) 2025 05/07/2023, 06/25/2022, 04/22/2021, Additional history exists Diabetes: Blood Sugar Control Test (HGBA1C) 05/19/2025 11/17/2024, 07/11/2024, 11/12/2023 Diabetes: Annual Urine Albumin-Creatinine Ratio (uACR) 07/11/2025 07/11/2024 Diabetes: Annual GFR (Glomerular Filtration Rate) 07/11/2025 07/11/2024, 06/01/2024, 11/12/2023 Hypertension/CHF/CAD Annual BMP Blood Test 07/11/2025 07/11/2024, 06/01/2024, 11/12/2023 Social Influencers of Health Screening 07/16/2025 07/16/2024 Diabetes: Annual Foot Exam 07/17/2025 07/17/2024 Depression Screening 10/07/2025 10/07/2024, 02/25/20 Falls Risk Assessment 10/11/2025 10/11/2024, 024 DTaP,Tdap,and [...] Procedure Name Priority Date/Time Associated Diagnosis Comments HEMOGLOBIN A1C Routine 11/17/2024 11:48 AM EDT Type 2 diabetes mellitus without complication, without long-term current use of insulin ([facility] V24, [facility] V28) MICROALBUMIN CREATININE URINE RATIO Routine 07/11/2024 11:14 AM EST Malignant neoplasm of prostate ([facility] V24, [facility] V28) Encounter for screening for malignant neoplasm of prostate BASIC METABOLIC PANEL Routine 07/11/2024 11:14 AM EST Malignant neoplasm of prostate ([facility] V24, [facility] V28) Encounter for screening for malignant neoplasm of prostate LIPID PANEL WITH REFLEX TO DIRECT LDL Routine 07/11/2024 11:14 AM EST Malignant neoplasm of prostate ([facility] V24, [facility] V28) Encounter for screening for malignant neoplasm of prostate Multiple-type hyperlipidemia DEPRESSION SCREENING Routine 2024 FALLS RISK ASSESSMENT Routine 01/11/2024 HEPATITIS C SCREENING Routine 05/09/2013 from Last 3 Months or Most Recently Relevant to Health Maintenance Results * Hemoglobin A1c (11/17/2024 11:48 AM EDT) Hemoglobin A1C 5.9 <6.5 % LAB CHEMISTRY METHOD 11/17/2024 9:56 PM EDT [facility] Mean Bld Glu Estim. 123 mg/dL LAB CHEMISTRY METHOD 11/17/2024 9:56 PM EDT [facility] Blood Venous blood specimen / Unknown Venipuncture / Unknown 11/17/2024 11:48 AM EDT 11/17/2024 11:48 AM EDT Jero Quintero MD LAB BLOOD ORDERABLES Final Result [facility] [address] [place] [address], [place] [phone] * Lipid panel with reflex to direct LDL (07/11/2024 11:14 AM EST) Cholesterol 123 0 - 200 mg/dL LAB CHEMISTRY METHOD 07/11/2024 4:00 PM [facility] Triglycerides 66 0 - 150 mg/dL LAB CHEMISTRY METHOD 07/11/2024 4:00 PM EST [facility] HDL 52 >=40 mg/dL LAB CHEMISTRY METHOD 07/11/2024 4:00 PM [facility] LDL Calculated 58 0 - 100 mg/dL LAB CHEMISTRY METHOD 07/11/2024 4:00 PM [facility] VLDL Cholesterol Omega 13.2 mg/dL LAB CHEMISTRY METHOD 07/11/2024 4:00 PM EST [facility] Non HDL Chol. (LDL+VLDL) 71 <145 mg/dL LAB CHEMISTRY METHOD 07/11/2024 4:00 PM [facility] Chol/HDL Ratio 2.4 0.0 - 4.4 LAB CHEMISTRY METHOD 07/11/2024 4:00 PM [facility] Blood Venous blood specimen / Unknown Venipuncture / Unknown 07/11/2024 11:14 AM EST 07/11/2024 11:14 AM EST Jero Quintero MD LAB BLOOD ORDERABLES Final Result [facility] [address] [place] [address], [place] [phone] * Microalbumin creatinine urine ratio (07/11/2024 11:14 AM EST) Creatinine, Urine 220.0 mg/dL LAB CHEMISTRY METHOD 07/11/2024 5:58 PM [facility] Microalb, Ur 22.8 0.0 - 29.0 mg/L LAB CHEMISTRY METHOD 07/11/2024 5:58 PM [facility] Microalb/Creat Ratio 10 <30 mg/g creat LAB CHEMISTRY METHOD 07/11/2024 5:58 PM [facility] Urine Urine specimen obtained by clean catch procedure / Unknown Non-blood Collection / Unknown 07/11/2024 11:14 AM EST 07/11/2024 11:14 AM EST Jero Quintero MD LAB URINE ORDERABLES Final Result [facility] [address] [place] [address], * Basic metabolic panel (07/11/2024 11:14 AM EST) Pathologist [facility] Sodium 139 133 - 145 mmol/L LAB CHEMISTRY METHOD 07/11/2024 3:57 PM [facility] Potassium 3.8 3.5 - 5.5 mmol/L LAB CHEMISTRY METHOD 07/11/2024 3:57 PM [facility] Chloride 105 96 - 110 mmol/L LAB CHEMISTRY METHOD 07/11/2024 3:57 PM [facility] CO2 29 21 - 32 mmol/L LAB CHEMISTRY METHOD 07/11/2024 3:57 PM [facility] Anion Gap 5 3 - 11 LAB CHEMISTRY METHOD 07/11/2024 3:57 PM [facility] Glucose 100 70 - 100 mg/dL LAB CHEMISTRY METHOD 07/11/2024 3:57 PM [facility] BUN 17 5 - 25 mg/dL LAB CHEMISTRY METHOD 07/11/2024 3:57 PM [facility] Creatinine 1.02 0.70 - 1.30 mg/dL LAB CHEMISTRY METHOD 07/11/2024 3:57 PM EST [facility] eGFR 77 >=60 mL/min/1. 73m2 LAB CHEMISTRY METHOD 07/11/2024 3:57 PM EST [facility] Comment:Calculation based on the??Chronic Kidney Disease Epidemiology Collaboration (CKD-EPI) equation refit??without adjustment for race. BUN/Creatinine Ratio 16.7 LAB CHEMISTRY METHOD 07/11/2024 3:57 PM EST [facility] Calcium 9.0 8.5 - 10.5 mg/dL LAB CHEMISTRY METHOD 07/11/2024 3:57 PM [facility] Blood Venous blood specimen / Unknown Venipuncture / Unknown 07/11/2024 11:14 AM EST 07/11/2024 11:14 AM EST Jero Quintero MD LAB BLOOD ORDERABLES Final Result [facility] [address] [place] [address], * Depression Screening (2024) Depression Screening abstracted Historical [facility] Final Result * Falls Risk Assessment (01/11/2024) Falls Risk Assessment abstracted Historical [facility] Final Result * Hepatitis C Screening (05/09/2013) Pathologist On license of [facility] Hepatitis C Screening abstracted Historical [facility] Final Result from Last 3 Months or Most Recently Relevant to Health Maintenance Insurance MEDICARE [facility] Care Teams Field Sales Trainer Relationship Specialty Start Date End Date Jero Quintero MD [address] [place] [address] PCP - General Internal Medicine 12/17/21
== END 2024-12-08 09:17 | disposition home or self-care (01) ==
LOC: HO.US 09:16
PROVIDERS: PCP Internal Medicine; Visit Provider Internal Medicine Cardiovascular Disease
DX: R09.89 Other specified symptoms and signs involving the circulatory and respiratory systems (principal)
CPT/HCPCS: 76775; 93975

== ENCOUNTER → 2024-12-08 09:21 | Outpatient (BNV) | payer MEDICARE, BC, SELFPAY | PROVIDERS: PCP Internal Medicine; Visit Provider Radiology Diagnostic Radiology | DX: R09.89 Other specified symptoms and signs involving the circulatory and respiratory systems (principal) | CPT/HCPCS: 76775; 93975 ==

== ENCOUNTER 2024-12-19 13:19 | Outpatient (AMB) | payer MEDICARE, BC, SELFPAY ==
--- OUTSIDE RECORDS SUMMARY | 2024-12-19 13:26 | XMS_ITS | Clinical Summary ---
Author Organization [address] Address [address] [place] [phone] Phone Care Team Providers Care Fabrication Manager Name Role Phone Jero Quintero MD Primary Care Provider Allergies No known active allergies Medications sodium chloride (AYR) 0.65 % nasal drops 1 [place] by Nasal route 3 times daily as [...] complication, without long-term current use of insulin ([facility], [facility] V28) 02/08/2024 Epistaxis 02/08/2024 Prediabetes 09/29/2022 Mixed hyperlipidemia 04/25/2019 Multiple cerebral infarctions ([facility] V[facility], [facility] V28) 11/17/2017 Iron deficiency anemia 11/17/2017 Prostate cancer ([facility] V24, [facility] V28) 11/30 Overview (06/09/2024): High grade prostate cancer - seeing Dr. Crow and Dr. 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 Acne 09/24/2008 Essential hypertension, benign 12/17/2005 Encounters Date Type Department Care Team Description 10/11/2024 1:30 PM EDT Office Visit Adult Medicine [address] [phone] Jero Quintero MD Essential hypertension, benign (Primary Dx); Type 2 diabetes mellitus without complication, without long-term current use of insulin ([facility] V24, [facility] V28); Mixed hyperlipidemia; Prostate cancer ([facility] V24, [facility] V28) from Last 3 Months Immunizations Name [...] PROSTATECTOMY 04/08/2017 PROCEDURE: PROSTATECTOMY ESOPHAGOGASTRODUODENOSCOPY 12/09/2017 PROCEDURE: [place] ESOPHAGOGASTRODUODENOSCOPY TRANSORAL DIAGNOSTIC; COMMENT: small polyp in cardia, snared without cautery: fundic gland polyp COLONOSCOPY 11/22/08 PROCEDURE: HISTORICAL COLONOSCOPY; COMMENT: diverticulosis and hemorrhoids; repeat in ten years COLONOSCOPY W/ POLYPECTOMY 12/09/2017 PROCEDURE: [place] COLSC FLX W/RMVL OF TUMOR POLYP LESION SNARE TQ; COMMENT: sessile serrated adenoma, hemorrhoids and tics; repeat in 5 yrs Medical History Medical History Date Comments Essential hypertension, benign 12/17/2005 D X:Essential hypertension, benign Acne 09/24/2008 DX:Acne 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 DX:Jeannie-We iss tear Prostate cancer ([facility] V24 , [facility] V28) 01/2017 DX:Prostate cancer (HCC); CO MMENT: s/p RP, deferred RT, currently on ADT followed closely by urologist every 3 months Multiple cerebral infarction s ([facility] V24, [facility] V28) 04/2017 DX:Multiple cerebral infarct ions (HCC) Type 2 diabetes mellitus wit hout complication, without long-term current use of insulin ([facility] V24, [facility] V28) 02/08/2024 DX:Type 2 diabetes mellitus [...] Daughter Alive Father at age 52. ? [place] Maternal Grandfather Maternal Grandmother Mother renal cancer [...] care for your loved ones. For example, director child or elderly care for an older adult? [...] complication, without long-term current use of insulin ([facility] V[facility], [facility] V28) MICROALBUMIN CREATININE URINE RATIO Routine 07/11/2024 11:14 AM EST Malignant neoplasm of prostate ([facility] V[facility], [facility] V28) Encounter for screening for malignant neoplasm of prostate BASIC METABOLIC PANEL Routine 07/11/2024 11:14 AM EST Malignant neoplasm of prostate ([facility], [facility] V28) Encounter for screening for malignant neoplasm of prostate LIPID PANEL WITH REFLEX TO DIRECT LDL Routine 07/11/2024 11:14 AM EST Malignant neoplasm of prostate ([facility], [facility] V28) Encounter for screening for malignant neoplasm of prostate Multiple-type hyperlipidemia DEPRESSION SCREENING Routine 2024 FALLS RISK ASSESSMENT Routine 01/11/2024 HEPATITIS C SCREENING Routine 05/09/2013 from Last 3 Months or Most Recently Relevant to Health Maintenance Results * Hemoglobin A1c (11/17/2024 11:48 AM EDT) Hemoglobin A1C 5.9 <6.5 % LAB CHEMISTRY METHOD 11/17/2024 9:56 PM EDT [facility] Mean Bld Glu Estim. 123 mg/dL LAB CHEMISTRY METHOD 11/17/2024 9:56 PM EDT [facility] Blood Venous blood specimen / Unknown Venipuncture / Unknown 11/17/2024 11:48 AM EDT 11/17/2024 11:48 AM EDT Jero Quintero MD LAB BLOOD ORDERABLES Final Result [facility] [address] [place] [address], [place] [phone] * Lipid panel with reflex to direct LDL (07/11/2024 11:14 AM EST) Cholesterol 123 0 - 200 mg/dL LAB CHEMISTRY METHOD 07/11/2024 4:00 PM [facility] Triglycerides 66 0 - 150 mg/dL LAB CHEMISTRY METHOD 07/11/2024 4:00 PM EST [facility] HDL 52 >=40 mg/dL LAB CHEMISTRY METHOD 07/11/2024 4:00 PM [facility] LDL Calculated 58 0 - 100 mg/dL LAB CHEMISTRY METHOD 07/11/2024 4:00 PM [facility] VLDL Cholesterol Omega 13.2 mg/dL LAB CHEMISTRY METHOD 07/11/2024 4:00 PM EST [facility] Non HDL Chol. (LDL+VLDL) 71 <145 mg/dL LAB CHEMISTRY METHOD 07/11/2024 4:00 PM [facility] Chol/HDL Ratio 2.4 0.0 - 4.4 LAB CHEMISTRY METHOD 07/11/2024 4:00 PM [facility] Blood Venous blood specimen / Unknown Venipuncture / Unknown 07/11/2024 11:14 AM EST 07/11/2024 11:14 AM EST Jero Quintero MD LAB BLOOD ORDERABLES Final Result [facility] [address] [place] [address], [place] [phone] * Microalbumin creatinine urine ratio (07/11/2024 11:14 AM EST) Creatinine, Urine 220.0 mg/dL LAB CHEMISTRY METHOD 07/11/2024 5:58 PM [facility] Microalb, Ur 22.8 0.0 - 29.0 mg/L LAB CHEMISTRY METHOD 07/11/2024 5:58 PM [facility] Microalb/Creat Ratio 10 <30 mg/g creat LAB CHEMISTRY METHOD 07/11/2024 5:58 PM [facility] Urine Urine specimen obtained by clean catch procedure / Unknown Non-blood Collection / Unknown 07/11/2024 11:14 AM EST 07/11/2024 11:14 AM EST Jero Quintero MD LAB URINE ORDERABLES Final Result [facility] [address] [place] [address], * Basic metabolic panel (07/11/2024 11:14 AM EST) Pathologist [facility] Sodium 139 133 - 145 mmol/L LAB CHEMISTRY METHOD 07/11/2024 3:57 PM [facility] Potassium 3.8 3.5 - 5.5 mmol/L LAB CHEMISTRY METHOD 07/11/2024 3:57 PM [facility] Chloride 105 96 - 110 mmol/L LAB CHEMISTRY METHOD 07/11/2024 3:57 PM [facility] CO2 29 21 - 32 mmol/L LAB CHEMISTRY METHOD 07/11/2024 3:57 PM [facility] Anion Gap 5 3 - 11 LAB CHEMISTRY METHOD 07/11/2024 3:57 PM [facility] Glucose 100 70 - 100 mg/dL LAB CHEMISTRY METHOD 07/11/2024 3:57 PM [facility] BUN 17 5 - 25 mg/dL LAB CHEMISTRY METHOD 07/11/2024 3:57 PM [facility] Creatinine 1.02 0.70 - 1.30 mg/dL LAB CHEMISTRY METHOD 07/11/2024 3:57 PM EST [facility] eGFR 77 >=60 mL/min/1. 73m2 LAB CHEMISTRY METHOD 07/11/2024 3:57 PM EST [facility] Comment:Calculation based on the??Chronic Kidney Disease Epidemiology Collaboration (CKD-EPI) equation refit??without adjustment for race. BUN/Creatinine Ratio 16.7 LAB CHEMISTRY METHOD 07/11/2024 3:57 PM EST [facility] Calcium 9.0 8.5 - 10.5 mg/dL LAB CHEMISTRY METHOD 07/11/2024 3:57 PM [facility] Blood Venous blood specimen / Unknown Venipuncture / Unknown 07/11/2024 11:14 AM EST 07/11/2024 11:14 AM EST Jero Quintero MD LAB BLOOD ORDERABLES Final Result [facility] [address] [place] [address], * Depression Screening (2024) Depression Screening abstracted Historical [facility] Final Result * Falls Risk Assessment (01/11/2024) Falls Risk Assessment abstracted Historical [facility] Final Result * Hepatitis C Screening (05/09/2013) Pathologist [facility] Hepatitis C Screening abstracted Historical [facility] Final Result from Last 3 Months or Most Recently Relevant to Health Maintenance Insurance MEDICARE [facility] [[email or web address]] Care Teams Fabrication Manager Relationship Specialty Start Date End Date Jero Quintero MD [address] [place] [address] PCP - General Internal Medicine 12/17/21
--- NOTE | 2024-12-19 13:33 | A.OFFVIS_ITS ---
Vital Signs 12/19/24 13:40 Height 6 ft BP 142/90 H Blood Pressure Location Rt brachial Position Sitting Pulse 68 Pulse Source Pulse Oximeter Pulse Oximetry (%) 98 Oxygen Delivery Method Room Air Intake Visit Reasons: f/up 7 day/ 24 hr bp/ NS Intake Note: patient presents for follow up Allergies No Known Allergies [No Known Allergies*] Allergy (Verified 12/19/24 13:36) Medication List - Last Reconciled 12/19/24 by Kush Lawrence NP amlodipine 5 mg PO DAILY aspirin 81 mg PO DAILY atorvastatin 40 mg PO BEDTIME lisinopril 10 mg PO DAILY metformin 500 mg PO DAILY metoprolol succinate ER 12.5 mg PO DAILY HPI Comments Details: This is a 74-year-old male patient coming in for a follow-up visit. Patient with a history of hypertension, hyperlipidemia, and PVCs. Patient was previously seen in the office for frequent PVCs and subsequently has undergone an echo study and a Holter monitor for further evaluation. Today, patient repor ts doing well overall and has been following with Nephrology for his labile blood pressures. Patient is denying any cardiac symptoms including exertional chest pain, shortness of breath, palpitations, dizziness, orthopnea, PND, leg edema, presyncope, or syncope. Patient states his amlodipine has been on hold by Nephrology. He has been checking his blood pressures religiously at home which he brings in with him today. Patient is otherwise affirming as compliance with medications. [facility] Medical History PVC (premature ventricular contraction) Labile hypertension Surgical History H/O Spinal surgery H/O prostatectomy H/O shoulder surgery Social History Alcohol intake: current Comment: Rare Patient Tobacco Use Status: Never used Tobacco Physical Exam Vital Signs: Last Vital Signs Pulse 68 12/19/24 13:40 BP 142/90 H 12/19/24 13:40 Pulse Ox 98 12/19/24 13:40 Oxygen Delivery Method Room Air 12/19/24 13:40 Const General: cooperative, healthy appearing, comfortable and no acute distress Orientation/consciousness: patient oriented x3 HEENT Head: Yes normal to inspection Neck Neck: Yes normal visual inspection, Yes trachea midline and Yes supple Chest Chest palpation & inspection: normal inspection of the chest Resp Effort & Inspection: normal respiratory effort Auscultation: clear to auscultation bilaterally, no crackles, no rales, no rhonchi and no wheezes Cardio Jugular venous distension: no JVD Palpation: normal PMI Rate: regular rate Rhythm: regular rhythm Heart sounds: S1 normal heart sound present, S2 normal heart sound present, no click, no gallops, no murmurs and no rubs Peripheral pulses: Peripheral pulses 2+ throughout GI Inspection: Yes normal to inspection Palpation (GI): Soft to palpation Auscultation: normal bowel sounds Skin General skin exam: no rashes or lesions noted Neuro General: patient oriented x3 Extrem General: Yes normal to inspection, No no pedal edema and No calf tenderness Psych Appearance: grossly normal Mental Status: mental status grossly normal Speech and movement: Normal speech and movement present Assessment & Plan Assessment & Plan (1) Labile hypertension: Code(s): R09.89 - Other specified symptoms and signs involving the circulatory and respiratory systems Category: Medical Plan: Blood pressure today is elevated at 142/90. He brings in his home monitor blood pressures. Since holding his amlodipine, patient's systolic blood pressure has been elevated between 140s to 170s. We will increase his lisinopril to 20 mg daily per plan by Nephrology. Continue metoprolol therapy. Advised continuing to monitor blood pressures at home and maintaining a log. Ideally, blood pressure goal less than 130/80. Patient to continue following with Nephrology for his labile blood pressures. (2) Enlarged thoracic aorta: Code(s): I77.89 - Other specified disorders of arteries and arterioles Category: Medical Plan: 11/17/2024-echo study showed a normal LV systolic function with an ejection fraction at 59%, with mild dilation of the ascending aorta measuring at 4.1 cm. We will monitor this with yearly echoes. (3) PVC (premature ventricular contraction): Code(s): I49.3 - Ventricular premature depolarization Category: Medical Plan: 11/17/2024-patient underwent a Holter study that showed underlying sinus rhythm with an average rate of 55 beats per minute, 1.2% of supraventricular ectopy with very brief runs, and rare ventricular ectopy with a run of 4 beats. Patient's symptoms were marked with sinus rhythm. Therefore, at this time no further treatment indicated. (4) Hyperlipidemia: Code(s): E78.5 - Hyperlipidemia, unspecified Category: Medical Plan: Continue statin therapy. Ideally, LDL goal less than 70. Patient states he recently had his fasting labs with PCP's office. Advised heart healthy diet, regular exercise, med compliance, and aggressive management of vascular risk factors. Follow-up in 1 year, sooner if needed. In the interim, patient will call the office with any concerns or change in symptoms. This note was generated using voice recognition software. While every effort has been made to ensure accuracy and proper church musician, there may be occasional errors that could affect the content or meaning of the described symptoms. Orders: Orders CA echo transthoracic complete 1 Year I77.89 - Other specified disorders of arteries and arterioles Medications: New lisinopril 20 mg PO DAILY 90 tabs 3RF Coding Level of Care Code Est Pt Level 4 (34859) Complex EM visit Add On G2211 Diagnoses Labile hypertension R09.89 Enlarged thoracic aorta I77.89 PVC (premature ventricular contraction) I49.3 Hyperlipidemia E78.5 Time Spent (min) 32 Comment Time spent in reviewing the chart, test results, assessment, counseling and documentation.
[2024-12-19 13:40] VITALS: BP 142/90; PULSE 68; O2SAT 98
== END 2024-12-19 14:08 | disposition home or self-care (01) ==
LOC: HO.HCS 13:20
PROVIDERS: PCP Internal Medicine
DX: R09.89 Other specified symptoms and signs involving the circulatory and respiratory systems (principal); I77.89 Other specified disorders of arteries and arterioles; I49.3 Ventricular premature depolarization; E78.5 Hyperlipidemia, unspecified
CPT/HCPCS: 99214; G2211

== ENCOUNTER → 2024-12-19 13:19 | Outpatient (BNVA) | payer MEDICARE, SELFPAY | PROVIDERS: PCP Internal Medicine | DX: I10 Essential (primary) hypertension (principal); I77.89 Other specified disorders of arteries and arterioles; I49.3 Ventricular premature depolarization; E78.5 Hyperlipidemia, unspecified; R09.89 Other specified symptoms and signs involving the circulatory and respiratory systems | CPT/HCPCS: 99212 ==

== ENCOUNTER 2025-01-16 11:45 | Outpatient (AMB) | payer MEDICARE, BC, SELFPAY ==
--- NOTE | 2025-01-16 12:15 | HO.NEPHOV ---
Vital Signs 01/16/25 12:17 Height 6 ft Weight 196 lb 4 oz BMI 26.6 BP 130/80 Blood Pressure Location Lt brachial Position Sitting Pulse 71 Pulse Source Pulse Oximeter Pulse Oximetry (%) 96 Oxygen Delivery Method Room Air Intake Visit Reasons: 2 mo follow up-[facility] Repacker Required: No Accompanied by: Self / Same As Patient Allergies No Known Allergies (No Known Allergies*) Allergy (Verified 01/16/25 12:21) Do you need a note to return to daycare/school/sports/work: No HPI Comments Details: Gerhard in follow up for labile hypertension . He is a 74-year-old male with prior history of hypertension and hyperlipidemia as borderline diabetes currently on medications. He claims to be hypertensive for a long time and is on Amlodipine as well as lisinopril. He has PVC's and has been initiated on beta [place]. He was no cardiac symptoms. He plays tennis 3 times a week doubles and has no exertional symptoms of chest pain or shortness of breath. He said when he plays tennis in his running around excessively any bends over to picker tender a ball and get up he feels lightheaded. He has not had actually a fainting episode. He denies any orthopnea, PND, leg edema. He claims to be compliant with the medications. He does not consume excess sodium in the diet or take NSAID's. He has not gained any weight . He monitors his BP at home and continues to be labile. He thinks his renal functions are normal. He denies thyroid dysfunction or JELENA. He had a 24 hour BPM which showed fairly controlled BP with occasional spikes of high readings( 24 hour average 129/85 mm of Hg, Day time average 129/86, Night time average 126/81) [facility] Medical History PVC (premature ventricular contraction) Labile hypertension Surgical History H/O Spinal surgery H/O prostatectomy H/O shoulder surgery Social History Alcohol intake: current Comment: Rare Patient Tobacco Use Status: Never used Tobacco Review of Systems Const All systems reviewed & are unremarkable except as noted in HPI and below Physical Exam Vital Signs: Last Vital Signs Pulse 71 01/16/25 12:17 BP 150/90 H 01/16/25 12:17 Pulse Ox 96 01/16/25 12:17 Oxygen Delivery Method Room Air 01/16/25 12:17 BMI result Body Mass Index 26.6 Const General: comfortable and no acute distress Orientation/consciousness: patient oriented x3 HEENT Head: Yes normocephalic Mouth: Normal oral and palatal mucosa present Eyes EOM: EOMs intact bilaterally Neck Neck: Yes supple Resp Auscultation: clear to auscultation bilaterally Cardio Jugular venous distension: no JVD Rate: regular rate GI Palpation (GI): Soft to palpation Auscultation: normal bowel sounds General: Yes no CVA tenderness Back/Spine/Pelvis Back: no CVA tenderness Skin General skin exam: no rashes or lesions noted Neuro General: patient oriented x3 and moves all extremities Extrem General: Yes no pedal edema Results Reviewed Nephrology Results: Renal US 12/09/24 Assessment & Plan Assessment & Plan (1) Labile hypertension: Code(s): R09.89 - Other specified symptoms and signs involving the circulatory and respiratory systems Category: Medical Plan Gerhard has long standing hypertension and is on multiple medications. He denies proteinuria, CAD, CHF, CVA, PAD , thyroid or renal dysfunction. His 24 hour BPM showed-- 24 hour average 129/85 mm of Hg, Day time average 129/86, Night time average 126/81. He does not take excess NSAID's or sodium in the diet. His weight is stable. He is a diabetic on Metformin. I asked him to take metoprolol and lisinopril in the morning. In the event if his BP goes up, I plan to increase dose of ACEI. Answered all questions. Coding Level of Care Code Est Pt Level 4 (87206) Diagnoses Labile hypertension R09.89
[2025-01-16 12:17] VITALS: BP 130/80; PULSE 71; O2SAT 96; BMI 26.6
--- OUTSIDE RECORDS SUMMARY | 2025-01-16 13:26 | XMS_ITS | Clinical Summary ---
Author Organization [address] Address [address] [place] [phone] Phone Care Team Providers Care Sales Advisory Manager Name Role Phone Jero Quintero MD Primary Care Provider Allergies No known active allergies Medications sodium chloride (AYR) 0.65 % nasal drops 1 Paradis by Nasal route 3 times daily as [...] complication, without long-term current use of insulin ([facility] V24, [facility] V28) 02/08/2024 Epistaxis 02/08/2024 Prediabetes 09/29/2022 Mixed hyperlipidemia 04/25/2019 Multiple cerebral infarctions ([facility] V24, [facility] V28) 11/17/2017 Iron deficiency anemia 11/17/2017 Prostate cancer ([facility] V24, [facility] V28) 11/30 Overview (06/09/2024): High grade prostate cancer - seeing Dr. Crow and Dr. Avitia - [facility] Ejannie-Holguin tear 09/16/2015 Acne 09/24/2008 Essential hypertension, benign 12/17/2005 Immunizations Name Administration Dates Next Due Influenza Quadravalent, 0.5m l (Fluad) 65yo and older 05/09/2020 Influenza Quadravalent, 0.5m l (Fluzone High-dose) 65yo and older 05/07/2023,06/25/2022 Influenza trivalent, 0.5mL ( Fluzone High-dose) 65yo and older 04/22/2021,05/26/2019,04/25/2018 Influenza trivalent, with pr eservative (Fluzone; Afluria) 6mo and older 05/09/2013 Pfizer Covid-19 Bivalent, Or iginal + Ba.1 (Non-US Trademark [employer] Bivalent) 07/15/2022 Pneumococcal conjugate 13 va lent [...] PROSTATECTOMY 04/08/2017 PROCEDURE: PROSTATECTOMY ESOPHAGOGASTRODUODENOSCOPY 12/09/2017 PROCEDURE: DC ESOPHAGOGASTRODUODENOSCOPY TRANSORAL DIAGNOSTIC; COMMENT: small polyp in cardia, snared without cautery: fundic gland polyp COLONOSCOPY 11/22/08 PROCEDURE: HISTORICAL COLONOSCOPY; COMMENT: diverticulosis and hemorrhoids; repeat in ten years COLONOSCOPY W/ POLYPECTOMY 12/09/2017 PROCEDURE: DC COLSC FLX W/RMVL OF TUMOR POLYP LESION SNARE TQ; COMMENT: sessile serrated adenoma, hemorrhoids and tics; repeat in 5 yrs Medical History Medical History Date Comments Essential hypertension, benign 12/17/2005 D X:Essential hypertension, benign Acne 09/24/2008 DX:Acne 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 DX:Jeannie-We iss tear Prostate cancer ([facility] V24 , [facility] V28) 01/2017 DX:Prostate cancer (HCC); CO MMENT: s/p RP, deferred RT, currently on ADT followed closely by urologist every 3 months Multiple cerebral infarction s ([facility] V24, [facility] V28) 04/2017 DX:Multiple cerebral infarct ions (HCC) Type 2 diabetes mellitus wit hout complication, without long-term current use of insulin ([facility] V24, [facility] V28) 02/08/2024 DX:Type 2 diabetes mellitus without [...] Daughter Alive Father at age 52. ? [place] Maternal Grandfather Maternal Grandmother Mother renal cancer [...] care for your loved ones. For example, professor of early childhood education or elderly care for an older adult? [...] 59 10/11/2024 1:15 PM EDT Temperature 36.4 C (97.5 F) 10/11/2024 1:15 PM EDT Respiratory Rate 14 10/11/2024 1:15 PM EDT [...] complication, without long-term current use of insulin ([facility] V24, [facility] V28) MICROALBUMIN CREATININE URINE RATIO Routine 07/11/2024 11:14 AM EST Malignant neoplasm of prostate ([facility] V24, [facility] V28) Encounter for screening for malignant neoplasm of prostate BASIC METABOLIC PANEL Routine 07/11/2024 11:14 AM EST Malignant neoplasm of prostate ([facility] V24, [facility] V28) Encounter for screening for malignant neoplasm of prostate LIPID PANEL WITH REFLEX TO DIRECT LDL Routine 07/11/2024 11:14 AM EST Malignant neoplasm of prostate ([facility] V24, [facility] V28) Encounter for screening for malignant neoplasm of prostate Multiple-type hyperlipidemia DEPRESSION SCREENING Routine 2024 FALLS RISK ASSESSMENT Routine 01/11/2024 HEPATITIS C SCREENING Routine 05/09/2013 from Last 3 Months or Most Recently Relevant to Health Maintenance Results * Hemoglobin A1c (11/17/2024 11:48 AM EDT) Hemoglobin A1C 5.9 <6.5 % LAB CHEMISTRY METHOD 11/17/2024 9:56 PM EDT [facility] Mean Bld Glu Estim. 123 mg/dL LAB CHEMISTRY METHOD 11/17/2024 9:56 PM EDT [facility] Blood Venous blood specimen / Unknown Venipuncture / Unknown 11/17/2024 11:48 AM EDT 11/17/2024 11:48 AM EDT us Jero Quintero MD LAB BLOOD ORDERABLES Final Result [facility] [address] [place] [address], * Lipid panel with reflex to direct LDL (07/11/2024 11:14 AM EST) Cholesterol 123 0 - 200 mg/dL LAB CHEMISTRY METHOD 07/11/2024 4:00 PM [facility] Triglycerides 66 0 - 150 mg/dL LAB CHEMISTRY METHOD 07/11/2024 4:00 PM [facility] HDL 52 >=40 mg/dL LAB CHEMISTRY METHOD 07/11/2024 4:00 PM [facility] LDL Calculated 58 0 - 100 mg/dL LAB CHEMISTRY METHOD 07/11/2024 4:00 PM [facility] VLDL Cholesterol Omega 13.2 mg/dL LAB CHEMISTRY METHOD 07/11/2024 4:00 PM [facility] Non HDL Chol. (LDL+VLDL) 71 <145 mg/dL LAB CHEMISTRY METHOD 07/11/2024 4:00 PM [facility] Chol/HDL Ratio 2.4 0.0 - 4.4 LAB CHEMISTRY METHOD 07/11/2024 4:00 PM [facility] Blood Venous blood specimen / Unknown Venipuncture / Unknown 07/11/2024 11:14 AM EST 07/11/2024 11:14 AM EST Jero Quintreo MD LAB BLOOD ORDERABLES Final Result [facility] [address] [place] [address], * Microalbumin creatinine urine ratio (07/11/2024 11:14 AM EST) Creatinine, Urine 220.0 mg/dL LAB CHEMISTRY METHOD 07/11/2024 5:58 PM [facility] Microalb, Ur 22.8 0.0 - 29.0 mg/L LAB CHEMISTRY METHOD 07/11/2024 5:58 PM [facility] Microalb/Creat Ratio 10 <30 mg/g creat LAB CHEMISTRY METHOD 07/11/2024 5:58 PM [facility] Urine Urine specimen obtained by clean catch procedure / Unknown Non-blood Collection / Unknown 07/11/2024 11:14 AM EST 07/11/2024 11:14 AM EST us Jero Quintero MD LAB URINE ORDERABLES Final Result [facility] [address] [place] [address], * Basic metabolic panel (07/11/2024 11:14 AM EST) Sodium 139 133 - 145 mmol/L LAB CHEMISTRY METHOD 07/11/2024 3:57 PM [facility] Potassium 3.8 3.5 - 5.5 mmol/L LAB CHEMISTRY METHOD 07/11/2024 3:57 PM [facility] Chloride 105 96 - 110 mmol/L LAB CHEMISTRY METHOD 07/11/2024 3:57 PM [facility] CO2 29 21 - 32 mmol/L LAB CHEMISTRY METHOD 07/11/2024 3:57 PM [facility] Anion Gap 5 3 - 11 LAB CHEMISTRY METHOD 07/11/2024 3:57 PM [facility] Glucose 100 70 - 100 mg/dL LAB CHEMISTRY METHOD 07/11/2024 3:57 PM [facility] BUN 17 5 - 25 mg/dL LAB CHEMISTRY METHOD 07/11/2024 3:57 PM [facility] Creatinine 1.02 0.70 - 1.30 mg/dL LAB CHEMISTRY METHOD 07/11/2024 3:57 PM [facility] eGFR 77 >=60 mL/min/1. 73m2 LAB CHEMISTRY METHOD 07/11/2024 3:57 PM [facility] Comment:Calculation based on the Chronic Kidney Disease Epidemiology Collaboration (CKD-EPI) equation refit without adjustment for race. BUN/Creatinine Ratio 16.7 LAB CHEMISTRY METHOD 07/11/2024 3:57 PM EST [facility] Calcium 9.0 8.5 - 10.5 mg/dL LAB CHEMISTRY METHOD 07/11/2024 3:57 PM EST [facility] Blood Venous blood specimen / Unknown Venipuncture / Unknown 07/11/2024 11:14 AM EST 07/11/2024 11:14 AM EST Jero Quintero MD LAB BLOOD ORDERABLES Final Result [facility] [address] [place] [address], * Depression Screening (2024) [facility] Depression Screening abstracted [facility] Provider HEALTH MAINTENANCE Final Result * Falls Risk Assessment (01/11/2024) [facility] Falls Risk Assessment abstracted Historical Provider HEALTH MAINTENANCE Final Result * Hepatitis C Screening (05/09/2013) Pathologist [facility] Hepatitis C Screening abstracted [facility] Provider HEALTH MAINTENANCE Final Result from Last 3 Months or Most Recently Relevant to Health Maintenance Insurance MEDICARE [facility] Care Teams Sales Advisory Manager Relationship Specialty Start Date End Date Jero Quintero MD [address] [place] [address] PCP - General Internal Medicine 12/17/21
== END 2025-01-16 12:37 | disposition home or self-care (01) ==
LOC: HO.HKAS 11:45
PROVIDERS: PCP Internal Medicine; Visit Provider Internal Medicine Nephrology
DX: R09.89 Other specified symptoms and signs involving the circulatory and respiratory systems (principal)
CPT/HCPCS: 99214

== ENCOUNTER → 2025-01-16 11:45 | Outpatient (BNVA) | payer MEDICARE, BC, SELFPAY | PROVIDERS: PCP Internal Medicine; Visit Provider Internal Medicine Nephrology | DX: R09.89 Other specified symptoms and signs involving the circulatory and respiratory systems (principal) | CPT/HCPCS: 99212 ==

== ENCOUNTER 2025-05-08 11:50 | Outpatient (AMB) | payer MEDICARE, BC, SELFPAY ==
--- NOTE | 2025-05-08 12:03 | HO.NEPHOV ---
Vital Signs 05/08/25 12:04 Height 6 ft Weight 190 lb 8 oz BMI 25.8 BP 150/90 H Blood Pressure Location Lt brachial Position Sitting Pulse 59 Pulse Source Pulse Oximeter Pulse Oximetry (%) 94 Oxygen Delivery Method Room Air Intake Visit Reasons: follow up Cooking Teacher Required: No Accompanied by: Self / Same As Patient Allergies No Known Allergies (No Known Allergies*) Allergy (Verified 05/08/25 12:04) HPI Comments Details: Gerhard in follow up for labile hypertension . He is a 75-year-old male with prior history of hypertension and hyperlipidemia as borderline diabetes currently on medications. He claims to be hypertensive for a long time and is on Amlodipine as well as lisinopril. He has PVC's and has been initiated on beta in[place]. He was no cardiac symptoms. He plays tennis 3 times a week doubles and has no exertional symptoms of chest pain or shortness of breath. He said when he plays tennis in his running around excessively any bends over to berry picker a ball and get up he feels lightheaded. He has not had actually a fainting episode. He denies any orthopnea, PND, leg edema. He claims to be compliant with the medications. He does not consume excess sodium in the diet or take NSAID's. He has not gained any weight . He monitors his BP at home and continues to be labile. He thinks his renal functions are normal. He denies thyroid dysfunction or JELENA. He had a 24 hour BPM which showed fairly controlled BP with occasional spikes of high readings( 24 hour average 129/85 mm of Hg, Day time average 129/86, Night time average 126/81) [facility] Medical History PVC (premature ventricular contraction) Labile hypertension Surgical History H/O Spinal surgery H/O prostatectomy H/O shoulder surgery Social History Alcohol intake: current Comment: Rare Patient Tobacco Use Status: Never used Tobacco Physical Exam Vital Signs: Last Vital Signs Pulse 59 05/08/25 12:04 BP 152/100 H 05/08/25 12:04 Pulse Ox 94 05/08/25 12:04 Oxygen Delivery Method Room Air 05/08/25 12:04 BMI result Body Mass Index 25.8 Results Reviewed Nephrology Results: Renal US 12/09/24 Assessment & Plan Assessment & Plan (1) Labile hypertension: Code(s): R09.89 - Other specified symptoms and signs involving the circulatory and respiratory systems Category: Medical Plan Gerhard has long standing hypertension and is on multiple medications. He denies proteinuria, CAD, CHF, CVA, PAD , thyroid or renal dysfunction. His 24 hour BPM showed-- 24 hour average 129/85 mm of Hg, Day time average 129/86, Night time average 126/81. He does not take excess NSAID's or sodium in the diet. His weight is stable. He is a diabetic on Metformin. I asked him to take metoprolol and lisinopril in the morning. I increased his dose of lsiinopril to 30 mg daily. Answered all questions. Coding Level of Care Code Est Pt Level 4 (88541) Diagnoses Labile hypertension R09.89
[2025-05-08 12:04] VITALS: BP 150/90; PULSE 59; O2SAT 94; BMI 25.8
== END 2025-05-08 12:22 | disposition home or self-care (01) ==
LOC: HO.HKAS 11:50
PROVIDERS: PCP Internal Medicine; Visit Provider Internal Medicine Nephrology
DX: R09.89 Other specified symptoms and signs involving the circulatory and respiratory systems (principal)
CPT/HCPCS: 99214

== ENCOUNTER → 2025-05-08 11:50 | Outpatient (BNVA) | payer MEDICARE, BC, SELFPAY | PROVIDERS: PCP Internal Medicine; Visit Provider Internal Medicine Nephrology | DX: I10 Essential (primary) hypertension (principal); R09.89 Other specified symptoms and signs involving the circulatory and respiratory systems; E11.9 Type 2 diabetes mellitus without complications | CPT/HCPCS: 99212 ==

== ENCOUNTER 2025-06-05 09:48 | Outpatient (AMB) | payer MEDICARE, BC, SELFPAY ==
--- NOTE | 2025-06-05 09:57 | HO.NEPHOV_ITS ---
Vital Signs 06/05/25 09:58 Height 6 ft Weight 191 lb 8 oz BMI 26.0 BP 130/80 Blood Pressure Location Lt brachial Position Sitting Pulse 54 Pulse Source Pulse Oximeter Pulse Oximetry (%) 94 Oxygen Delivery Method Room Air Intake Visit Reasons: 4-6 weeks F/U-LVM Data Governance Analyst Required: No Accompanied by: Self / Same As Patient Allergies No Known Allergies (No Known Allergies*) Allergy (Verified 06/05/25 09:58) Medication List - Last Reconciled 06/05/25 by Nestor Grigsby MD amlodipine 5 mg PO DAILY atorvastatin 40 mg PO BEDTIME lisinopril 30 mg PO DAILY metformin 500 mg PO DAILY metoprolol succinate ER 12.5 mg PO DAILY HPI Comments Details: Gerhard in follow up for labile hypertension . He is a 75-year-old male with prior history of hypertension and hyperlipidemia as borderline diabetes currently on medications. He claims to be hypertensive for a long time and is on Amlodipine as well as lisinopril. He has PVC's and has been initiated on beta [place]. He was no cardiac symptoms. He plays tennis 3 times a week doubles and has no exertional symptoms of chest pain or shortness of breath. He said when he plays tennis in his running around excessively any bends over to greens picker a ball and get up he feels lightheaded. He has not had actually a fainting episode. He denies any orthopnea, PND, leg edema. He claims to be compliant with the medications. He does not consume excess sodium in the diet or take NSAID's. He has not gained any weight . He monitors his BP at home and continues to be labile. He thinks his renal functions are normal. He denies thyroid dysfunction or JELENA. [facility] Medical History PVC (premature ventricular contraction) Labile hypertension Surgical History H/O Spinal surgery H/O prostatectomy H/O shoulder surgery Social History Alcohol intake: current Comment: Rare Patient Tobacco Use Status: Never used Tobacco Review of Systems Const All systems reviewed & are unremarkable except as noted in HPI and below Physical Exam Vital Signs: Last Vital Signs Pulse 54 06/05/25 09:58 BP 130/88 06/05/25 09:58 Pulse Ox 94 06/05/25 09:58 Oxygen Delivery Method Room Air 06/05/25 09:58 BMI result Body Mass Index 26.0 Const General: comfortable and no acute distress Orientation/consciousness: patient oriented x3 HEENT Head: Yes normocephalic Mouth: Normal oral and palatal mucosa present Eyes EOM: EOMs intact bilaterally Neck Neck: Yes supple Resp Auscultation: clear to auscultation bilaterally Cardio Jugular venous distension: no JVD Rate: regular rate GI Palpation (GI): Soft to palpation Auscultation: normal bowel sounds General: Yes no CVA tenderness Back/Spine/Pelvis Back: no CVA tenderness Skin General skin exam: no rashes or lesions noted Neuro General: patient oriented x3 and moves all extremities Extrem General: Yes no pedal edema Results Reviewed Nephrology Results: Renal US 12/09/24 Assessment & Plan Assessment & Plan (1) Labile hypertension: Code(s): R09.89 - Other specified symptoms and signs involving the circulatory and respiratory systems Category: Medical Plan Gerhard has long standing hypertension and is on multiple medications. He denies proteinuria, CAD, CHF, CVA, PAD , thyroid or renal dysfunction. He does not take excess NSAID's or sodium in the diet. His weight is stable. He is a diabetic on Metformin. I asked him to take metoprolol and lisinopril in the morning. I may increase his dose of lsiinopril to 40 mg daily at next visit. F/U labs ordered. Answered all questions Orders: Orders Electrolytes 3 Months R09.89 - Other specified symptoms and signs involving the circulatory and respiratory systems Blood Urea Nitrogen 3 Months R09.89 - Other specified symptoms and signs involving the circulatory and respiratory systems Creatinine 3 Months R09.89 - Other specified symptoms and signs involving the circulatory and respiratory systems Medications: Changed From lisinopril 30 mg PO DAILY To lisinopril 30 mg PO DAILY 90 tabs 3RF 90 days Coding Level of Care Code Est Pt Level 4 (81802) Diagnoses Labile hypertension R09.89
[2025-06-05 09:58] VITALS: BP 130/80; PULSE 54; O2SAT 94; BMI 26.0
--- OUTSIDE RECORDS SUMMARY | 2025-06-05 11:04 | XMS_ITS | Clinical Summary ---
Author Organization [address] Address [address] [place] [phone] Phone Care Team Providers Care Bell Ringer Name Role Phone Jero Quintero MD Primary Care Provider Allergies No known active allergies Medications sodium chloride (AYR) 0.65 % nasal drops 1 [place] by Nasal route 3 times daily as needed for Congestion. 02/08/20 24 Active aspirin 81 mg EC tablet Take 1 tablet (81 mg total) by mouth 1 (one) time each day. Active amLODIPine (NORVASC) 5 mg tablet Take 1 tablet (5 mg total) by mouth 1 (one) time each day. 90 tablet 1 10/12/19 25 Active lisinopriL (PRINIVIL,ZEST RIL) 10 mg tablet Take 1 tablet (10 mg total) by mouth at bedtime. 90 tablet 1 10/12/19 25 Active metoprolol succinate (TOPROL-XL) 25 mg 24 hr tablet TAKE 1/2 TABLET BY MOUTH ONCE A DAY. DO NOT CRUSH OR CHEW. 45 tablet 04/10/20 25 Active atorvastatin (LIPITOR) 40 mg tablet TAKE 1 TABLET BY MOUTH ONCE A DAY 90 tablet 05/10/20 25 Active metFORMIN XR (GLUCOPHAGE-XR ) 500 mg 24 hr tablet TAKE 1 TABLET BY MOUTH ONCE A DAY WITH BREAKFAST 90 tablet 05/10/20 25 Active atorvastatin (LIPITOR) 40 mg tablet Take 1 tablet (40 mg total) by mouth 1 (one) time each day. 90 tablet 1 10/12/19 25 025 Discontinued metFORMIN XR (GLUCOPHAGE-XR ) 500 mg 24 hr tablet Take 1 tablet (500 mg total) by mouth 1 (one) time each day. With breakfast 90 tablet 1 10/12/19 25 025 Discontinued Active Problems Problem Noted Date Diagnosed Date Type 2 diabetes mellitus wit hout complication, without long-term current use of insulin ([facility] V24, [facility] V28) 02/08/2024 Epistaxis 02/08/2024 Prediabetes 09/29/2022 Mixed hyperlipidemia 04/25/2019 Multiple cerebral infarctions ([facility] V24, [facility] V28) 11/17/2017 Iron deficiency anemia 11/17/2017 Prostate cancer ([facility] V24, [facility] V28) 11/30 Overview (06/09/2024): High grade prostate cancer - seeing Dr. Crow and Dr. 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 Acne 09/24/2008 Essential hypertension, benign 12/17/2005 Immunizations Immunization Administration Dates Next Due Influenza Quadravalent, 0.5m l (Fluad) 65yo and older 05/09/2020 Influenza Quadravalent, 0.5m l (Fluzone High-dose) 65yo and older 05/07/2023,06/25/2022 Influenza trivalent, 0.5mL ( Fluzone High-dose) 65yo and older 04/22/2021,05/26/2019,04/25/2018 Influenza trivalent, with pr eservative (Fluzone; Afluria) 6mo and older 05/09/2013 Pfizer Covid-19 Bivalent, Or iginal + Ba.1 (Non-US Trademark [employer] Bivalent) 07/15/2022 Pneumococcal conjugate 13 va lent [...] PROSTATECTOMY 04/08/2017 PROCEDURE: PROSTATECTOMY ESOPHAGOGASTRODUODENOSCOPY 12/09/2017 PROCEDURE: KS ESOPHAGOGASTRODUODENOSCOPY TRANSORAL DIAGNOSTIC; COMMENT: small polyp in cardia, snared without cautery: fundic gland polyp COLONOSCOPY 11/22/08 PROCEDURE: HISTORICAL COLONOSCOPY; COMMENT: diverticulosis and hemorrhoids; repeat in ten years COLONOSCOPY W/ POLYPECTOMY 12/09/2017 PROCEDURE: KS COLSC FLX W/RMVL OF TUMOR POLYP LESION SNARE TQ; COMMENT: sessile serrated adenoma, hemorrhoids and tics; repeat in 5 yrs Medical History Medical History Date Comments Essential hypertension, benign 12/17/2005 D X:Essential hypertension, benign Acne 09/24/2008 DX:Acne 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 DX:Jeannie-We iss tear Prostate cancer ([facility] V24 , [facility] V28) 01/2017 DX:Prostate cancer (HCC); CO MMENT: s/p RP, deferred RT, currently on ADT followed closely by urologist every 3 months Multiple cerebral infarction s ([facility] V24, [facility] V28) 04/2017 DX:Multiple cerebral infarct ions (HCC) Type 2 diabetes mellitus wit hout complication, without long-term current use of insulin ([facility] V24, [facility] V28) 02/08/2024 DX:Type 2 diabetes mellitus without complication, without long-term current use of insulin ([facility]) Family History Medical History Relation Name Comments [...] your loved ones. For example, early childhood aide classroom or elderly care for an older adult? [...] Date Recorded What is your living situation? Unrecognized valu e 07/16/2024 Sex and Gender Information Value Date Recorded [...] Health Maintenance Due Date Last Done Comments Colorectal Cancer Screening: Colonoscopy 1950 Diabetes: Annual Retina Eye Exam 1959 Medicare Annual Wellness Visit 07/04/2022 RSV Immunization Adult Patients (1 - 1-dose 75+ series) 02/26/2024 COVID-19 Vaccine ( season) 2025 03/25/2024, 05/07/2023, 05/20/2021, Additional history exists Influenza Vaccine (#1) 2025 , 06/25/2022, 04/22/2021, Additional history exists Diabetes: Blood Sugar Control Test (HGBA1C) 05/19/2025 11/17/2024, 07/11/2024, 11/12/2023 Diabetes: Annual Urine Albumin-Creatinine Ratio (uACR) 07/11/2025 07/11/2024 Social Influencers of Health Screening 07/16/2025 07/16/2024 Diabetes: Annual Foot Exam 07/17/2025 07/17/2024 Falls Risk Assessment 10/11/2025 10/11/2024, 01/10/ 024 Diabetes: Annual GFR (Glomerular Filtration Rate) 01/25/2026 01/25/2025, 07/11/2024, 06/01/2024, Additional history exists Hypertension/CHF/CAD Annual BMP Blood Test 01/25/2026 01/25/2025, 07/11/2024, 06/01/2024, Additional history exists DTaP,Tdap,and Td Vaccines (3 - Td or Tdap) 04/25/2028 04/25/2018, 08/02/2007 Cholesterol Screening (Lipid Panel) 07/11/2029 07/11/2024, 05/17/2023 Hepatitis C Screening Completed 05/09/2013 Zoster Vaccines Completed 09/07/2021, 02/2022, 06/23/2021, Additional history exists Depression Screening Completed 10/07/2024, 02/25/20 24 Pneumococcal Vaccine: 50+ Years Completed 10/11/2024, 09/16/2015, [...] Procedure Name Priority Date/Time Associated Diagnosis Comments CREATININE, SERUM Routine 01/25/2025 9:3 5 AM EDT Complex renal cyst HEMOGLOBIN A1C Routine 11/17/2024 11:48 AM EDT Type 2 diabetes mellitus without complication, without long-term current use of insulin ([facility] V24, [facility] V28) MICROALBUMIN CREATININE URINE RATIO Routine 07/11/2024 [...] Recently Relevant to Health Maintenance Results * Creatinine (01/25/2025 9:35 AM EDT) Creatinine 0.92 0.70 - 1.30 mg/dL LAB CHEMISTRY METHOD 01/25/2025 1:03 PM EDT [facility] eGFR 87 >=60 mL/min/1. 73m2 LAB CHEMISTRY METHOD 01/25/2025 1:03 PM EDT [facility] Comment:Calculation based on the Chronic Kidney Disease Epidemiology Collaboration (CKD-EPI) equation refit without adjustment for race. Blood Venous blood specimen / Unknown Venipuncture / Unknown 01/25/2025 9:35 AM EDT 01/25/2025 9:35 AM EDT us Dino Rubalcava MD LAB BLOOD ORDERABLES Final Resul t [facility] [address] [place] [address], [place] [phone] * Hemoglobin A1c (11/17/2024 11:48 AM EDT) Hemoglobin A1C 5.9 <6.5 % LAB CHEMISTRY METHOD 11/17/2024 9:56 PM EDT [facility] Mean Bld Glu Estim. 123 mg/dL LAB CHEMISTRY METHOD 11/17/2024 9:56 PM EDT [facility] Blood Venous blood specimen / Unknown Venipuncture / Unknown 11/17/2024 11:48 AM EDT 11/17/2024 11:48 AM EDT Jero Quintero MD LAB BLOOD ORDERABLES Final Result [facility] [address] [place] [address], [place] [phone] * Lipid panel with reflex to direct LDL (07/11/2024 11:14 AM EST) [facility] Cholesterol 123 0 - 200 mg/dL LAB CHEMISTRY METHOD 07/11/2024 4:00 PM [facility] Triglycerides 66 0 - 150 mg/dL LAB CHEMISTRY METHOD 07/11/2024 4:00 PM [facility] HDL 52 >=40 mg/dL LAB CHEMISTRY METHOD 07/11/2024 4:00 PM [facility] LDL Calculated 58 0 - 100 mg/dL LAB CHEMISTRY METHOD 07/11/2024 4:00 PM [facility] VLDL Cholesterol Omega 13.2 mg/dL LAB CHEMISTRY METHOD 07/11/2024 4:00 PM [facility] Non HDL Chol. (LDL+VLDL) 71 <145 mg/dL LAB CHEMISTRY METHOD 07/11/2024 4:00 PM [facility] Chol/HDL Ratio 2.4 0.0 - 4.4 LAB CHEMISTRY METHOD 07/11/2024 4:00 PM EST [facility] Blood Venous blood specimen / Unknown Venipuncture / Unknown 07/11/2024 11:14 AM EST 07/11/2024 11:14 AM EST Jero Quintero MD LAB BLOOD ORDERABLES Final Result [facility] [address] [place] [address], [place] [phone] * Microalbumin creatinine urine ratio (07/11/2024 11:14 AM EST) Creatinine, Urine 220.0 mg/dL LAB CHEMISTRY METHOD 07/11/2024 5:58 PM [facility] Microalb, Ur 22.8 0.0 - 29.0 mg/L LAB CHEMISTRY METHOD 07/11/2024 5:58 PM EST [facility] Microalb/Creat Ratio 10 <30 mg/g creat LAB CHEMISTRY METHOD 07/11/2024 5:58 PM EST [facility] Urine Urine specimen obtained by clean catch procedure / Unknown Non-blood Collection / Unknown 07/11/2024 11:14 AM EST 07/11/2024 11:14 AM EST Jero Quintero MD LAB URINE ORDERABLES Final Result [facility] [address] [place] [address], [place] [phone] * Depression Screening (2024) HM Depression Screening abstracted Historical Provider HEALTH MAINTENANCE Final Result * Falls Risk Assessment (01/11/2024) Falls Risk Assessment abstracted Historical Provider HEALTH MAINTENANCE Final Result * Hepatitis C Screening (05/09/2013) Pathologist [facility] Hepatitis C Screening abstracted us Historical Provider HEALTH MAINTENANCE Final Result from Last 3 Months or Most Recently Relevant to Health Maintenance Insurance MEDICARE [facility] Care Teams Bell Ringer Relationship Specialty Start Date End Date Jero Quintero MD [address] [place] [address] PCP - General Internal Medicine 12/17/21
--- OUTSIDE RECORDS SUMMARY | 2025-06-05 11:04 | XMS_ITS | Clinical Summary ---
Author Organization [facility] Address [address] [place] [address] Phone Care Team Providers Care Lining Setter Name Role Phone Jero Quintero MD Primary Care Provider Dino Rubalcava MD Unavailable Allergies No known active allergies Medications atorvastatin (LIPITOR) 40 MG tablet 03/17/2023 Active amLODIPine (NORVASC) 5 MG tablet 06/05/2023 Active metFORMIN (GLUCOPHAGE-XR) 500 MG 24 hr tablet 05/18/2023 Active aspirin 81 mg Cap Active metoprolol tartrate (LOPRESSOR) 25 MG tablet Take 25 mg by mouth daily. Taking 1/2 tablet daily Active lisinopril (PRINIVIL,ZESTRI L) 20 MG tablet Take 20 mg by mouth daily. 12/18/2024 Active Active Problems Problem Noted Date Diagnosed Date Renal lesion 05/10/2024 Male stress incontinence 12/17/2017 023 Posterior epistaxis 10/26/2017 04/15/2023 Acne 12/03/2016 04/15/2023 Essential hypertension 12/03/2016 3 Gastro-esophageal reflux 12/03/2016 023 Prostate cancer 12/03/2016 04/15/2023 Encounters Date Type Department Care Team Description 03/05/2025 9:00 AM EDT Follow-Up [facility] [address] [place] [address] Palma Larsen PA-C Complex renal cyst (Primary Dx); History of prostate cancer; Urinary incontinence, unspecified type from Last 3 [...] Care Team (Late st Contact Info) Description 03/08/2026 11:00 AM EDT Follow-Up [facility] [address] [place] [address] Dino Rubalcava MD [address] [place] [address] [email or web address] Health Maintenance Due Date Last Done Comments Adult Td,Tdap Booster 1950 BLOOD PRESSURE 1950 POTASSIUM LEVEL 1950 DEPRESSION SCREENING 1961 HEPATITIS C SCREENING 1967 PNEUMOCOCCAL VACCINES (50+ years) (1 of 2 - PCV) 02/26/1968 ZOSTER VACCINES (1 of 2) 06/14/2012 04/19/2012 RSV VACCINE (1 - 1-dose 75+ series) 02/26/2024 INFLUENZA VACCINE (#1) 2025 COVID-19 VACCINE ( - 2024- season) 2025 CREATININE LEVEL 01/10/2026 01/10/2025, 01/2024, 12/14/2023, Additional history exists LIPID PANEL 07/11/2029 07/11/2024 SMOKING STATUS SCREENING (Once After 26 Yrs) Completed 04/19/2023 HEPATITIS A VACCINES Aged Out No long er eligible based on patient's age to complete this topic HIB VACCINES Aged Out No longer eligi ble based on patient's age to complete this topic IPV VACCINES Aged Out No longer eligi ble based on patient's age to complete this topic MENINGOCOCCAL VACCINES (ACWY) Aged Out No longer eligible based on patient's age to complete this topic MENINGOCOCCAL VACCINES (B) Aged Out N o longer eligible based on patient's age to complete this topic Medical Devices Not on file Procedures Procedure Name Priority Date/Time Associated Diagnosis Comments URINALYSIS Routine 03/05/2025 9:32 AM EDT History of prostate cancer POCT URINE DIPSTICK Routine 03/05/2025 8 :51 AM EDT Complex renal cyst History of prostate cancer Urinary incontinence, unspecified type from Last 3 Months Results * Urinalysis (03/05/2025 9:32 AM EDT) Urine Color YELLOW YELLOW [facility] (CLIA# [id number]) Urine Appearance CLEAR [facility] (CLIA# [id number]) Urine pH 7.5 5.5 - 7.5 [facility] (CLIA# [id number]) Specific [place],Urine 1.015 1.005 - 1.025 [facility] (CLIA# [id number]) UA Glucose NEGATIVE NEGATIVE mg/dL [facility] (CLIA# [id number]) Urine Bilirubin (UA) NEGATIVE NEGATIVE [facility] (CLIA# [id number]) Ketone (UA) NEGATIVE NEGATIVE mg/dL [facility] (CLIA# [id number]) Urine Blood (UA) NEGATIVE NEGATIVE [facility] (CLIA# [id number]) Protein (UA) NEGATIVE NEGATIVE mg/dL [facility] (CLIA# [id number]) Urine Urobilinogen 1.0 <=1.0 EU/dL [facility] (CLIA# [id number]) Nitrite (UA) NEGATIVE NEGATIVE [facility] (CLIA# [id number]) Leukocyte Esterase NEGATIVE NEGATIVE [facility] (CLIA# [id number]) Urine 03/05/2025 9:32 AM EDT 03/05/2025 3:06 PM EDT Palma Larsen PA-C LAB URINE ORDERABLES Final Result [facility] (CLIA# [id number]) [address] [facility] [place] [address] * (ABNORMAL) POCT Urine Dipstick (03/05/2025 8:51 AM EDT) Glucose, Urine - POC Negative Negative Ketones, Urine - POC Negative Negative Specific [place], Urine - POC Blood, Urine - POC Trace(A) Negative pH, Urine - POC 7.5 5.0, 6.0, 7.0, 5.5, 5.8, 6.2, 6.4, 6.6, 6.8, 7.5, 6.5 Protein, Urine - POC Negative Negative Nitrite, Urine - POC Negative Negative Leukocyte Esterase, Urine - POC Negative Negative Other 03/05/2025 8:51 AM EDT Palma Larsen PA-C LAB POCT ENTER/EDIT ORDERA BLES Final Result from Last 3 Months Insurance MEDICARE PART A & B [employer] [place] [id number] MEDICARE PART A & B [employer] PCP REQ SUPPLEMENT MEDICARE PART A & B [employer] PCP REQ SUPPLEMENT MEDICARE PART A & B [employer] PCP REQ SUPPLEMENT MEDICARE PART A & B [facility] PCP REQ SUPPLEMENT MEDICARE PART A & B [employer] PCP REQ SUPPLEMENT MEDICARE PART A & B [employer] PCP REQ SUPPLEMENT Care Teams Lining Setter Relationship Specialty Start Date End Date Jero Quintero MD [address] [place] [address] PCP - General 04/09/23 Dino Rubalcava MD [address] [place] [address] [email or web address] Urology 06/10/23 Additional Source Comments The information contained in this document represents components of the legal health record. It is not the complete legal health record.[facility]
== END 2025-06-05 10:29 | disposition home or self-care (01) ==
LOC: HO.HKAS 09:49
PROVIDERS: PCP Internal Medicine; Visit Provider Internal Medicine Nephrology
DX: R09.89 Other specified symptoms and signs involving the circulatory and respiratory systems (principal)
CPT/HCPCS: 99214

== ENCOUNTER → 2025-06-05 09:48 | Outpatient (BNVA) | payer MEDICARE, BC, SELFPAY | PROVIDERS: PCP Internal Medicine; Visit Provider Internal Medicine Nephrology | DX: R03.0 Elevated blood-pressure reading, without diagnosis of hypertension (principal); R09.89 Other specified symptoms and signs involving the circulatory and respiratory systems | CPT/HCPCS: 99212 ==